=== PATIENT | female | born 1950 | race Caucasian/White ===

== ENCOUNTER 2016-03-24 09:33 | Inpatient (IN) | payer OTHER ==
[~2016-03-24] VITALS: Ht 160 cm; Wt 61.2 kg
[2016-03-24 09:34] VITALS: BP 143/73; PULSE 101; RESP 24; TEMP 97.5; O2SAT 94
[2016-03-24] MEDS ORDERED: SODIUM CHLOR 0.9% 1000 ML INJ 1,000 ML IV SCH (11:29)
--- NOTE | 2016-03-24 11:29 | PD ---
HPI Chief Complaint: Abdominal Pain Time Seen by Provider: 11:25 Travel History International Travel<30 days: No Contact w/Intl Traveler<30days: No Traveled to known affect area: No History of Present Illness HPI 65-year-old female coming in with progressively worsening abdominal pain, nausea, vomiting, and lack of bowel movement. Patient states she was recently seen in [facility], and advised to go to [place]. She left AMA and came here today. She is unsure of what her diagnosis was at that time. Patient states a 3 to four-week history of increasing abdominal pain , which she is blaming on a recent pain patch she was placed on for her chronic back pain. Patient is a long-term smoker with history of COPD. Patient currently only takes Lortab and Xanax for her ADHD. Patient also takes inhalers for her COPD. She continues to smoke one to 2 packs of cigarettes per day. She denies liver, or pancreatic problems. She states she has not drunk alcohol in 20 years. Patient states she cannot keep anything down for the past week. Patient states decreased urine output. Patient denies fever, chills, or burning with urination. Patient is noted bilateral lower extremity swelling over the past week as well. Patient's chief complaint is of severe abdominal pain mainly in the right upper quadrant and epigastric region. Patient is allergic to Darvocet and nonsteroidal medications. [facility] Social History Alcohol Use: No Tobacco Use: Yes Substance Use: No Allergies-Medications (Allergen,Severity, Reaction): Coded Allergies: Darvocet-N 100 (Verified Allergy, Severe, Nausea/Vomiting, 03/24/16) Nonsteroidal Anti-Inflammatory Agts (Verified Adverse Reaction, Severe, peptic ulcer, 03/24/16) Review of Systems Except as stated in HPI: all other systems reviewed are Neg General / Constitutional: No: Fever, Chills Eyes: No: Visual changes HENT: No: Headaches Cardiovascular: No: Chest Pain or Discomfort Respiratory: No: Shortness of Breath Gastrointestinal: Positive: Nausea, Vomiting, Abdominal Pain, Constipation, No : Diarrhea, Hematemesis, Hematochezia, Changes in Bowel Habits, Indigestion, Dysphagia, Loss of Appetite Genitourinary: Positive: Decreased Urinary Output, No: Dysuria Musculoskeletal: No: Pain Skin: No Rash Neurologic: No: Weakness Psychiatric: No: Depression Endocrine: No: Polydipsia Hematologic/Lymphatic: No: Easy Bruising Physical Exam Exam Limitations: Poor Historian Narrative GENERAL: Somewhat confused and disheveled patient with obvious mild jaundice. SKIN: Warm and dry. Mild jaundice noted. Poor turgor. Mild tenting present. HEAD: Atraumatic. Normocephalic. EYES: Pupils equal and round. Mild to moderate scleral icterus. No injection or drainage. ENT: No nasal bleeding or discharge. Mucous membranes pink and somewhat dry. Pharynx is clear. Airway is patent. NECK: Trachea midline. No JVD. Supple nontender. CARDIOVASCULAR: Regular rate and rhythm. RESPIRATORY: No accessory muscle use. Clear to auscultation. Breath sounds equal bilaterally. GASTROINTESTINAL: Abdomen soft, moderate right upper quadrant and epigastric tenderness with guarding, mildly distended. There appears to be a hard tender enlarged liver. No CVA tenderness. MUSCULOSKELETAL: Extremities without clubbing, cyanosis, or bilateral 2+ pitting edema in both lower extremities. No obvious deformities. NEUROLOGICAL: Awake and alert. No obvious cranial nerve deficits. Motor grossly within normal limits. Five out of 5 muscle strength in the arms and legs. Normal speech. PSYCHIATRIC: Appropriate mood and affect; insight and judgment normal. Data Data Last Documented VS Vital Signs Date Time Temp Pulse Resp B/P Pulse Ox O2 Delivery O2 Flow Rate FiO2 03/24/16 11:34 95 Room Air 03/24/16 11:31 18 03/24/16 09:34 97.5 101 143/73 Orders Complete Blood Count With Diff (03/24/16 09:36) Comprehensive Metabolic Panel (03/24/16 09:36) Urinalysis - C+S If Indicated (03/24/16 09:36) Lipase (03/24/16 09:36) Lactic Acid (03/24/16 11:29) Prothrombin Time / Inr (Pt) (03/24/16 11:29) Act Partial Throm Time (Ptt) (03/24/16 11:29) Ct Abd/Pel W Iv Contrast(Rout) (03/24/16 11:29) Iv Access Insert/Monitor (03/24/16 11:29) Ecg Monitoring (03/24/16 11:29) Oximetry (03/24/16 11:29) NPO (03/24/16 11:29) Morphine Inj (Morphine Inj) (03/24/16 11:30) Ondansetron Inj (Zofran Inj) (03/24/16 11:30) Pantoprazole Inj (Protonix Inj) (03/24/16 11:30) Sodium Chlor 0.9% 1000 Ml Inj (Ns 1000 M (03/24/16 11:29) Sodium Chloride 0.9% Flush (Ns Flush) (03/24/16 11:30) Electrocardiogram (03/24/16 11:29) Ammonia (03/24/16 11:29) Alcohol (Ethanol) (03/24/16 11:32) Oral Contrast - Adult (03/24/16 11:33) Diatrizoate Liq ( Gastroview Liq) (03/24/16 12:06) Hepatitis Profile (03/24/16 12:56) Ct Thorax/ Chest Wo Iv Contras (03/24/16 14:06) Iohexol 350 Inj (Omnipaque 350 Inj) (03/24/16 14:19) Admit Order (Ed Use Only) (03/24/16 14:52) Labs Laboratory Tests Test 03/24/16 03/24/16 11:45 14:00 White Blood Count 17.5 TH/MM3 Red Blood Count 5.07 MIL/MM3 Hemoglobin 15.7 GM/DL Hematocrit 45.3 % Mean Corpuscular Volume 89.4 FL Mean Corpuscular Hemoglobin 31.0 PG Mean Corpuscular Hemoglobin 34.7 % Concent Red Cell Distribution Width 13.9 % Platelet Count 118 TH/MM3 Mean Platelet Volume 8.4 FL Neutrophils (%) (Auto) 86.9 % Lymphocytes (%) (Auto) 7.2 % Monocytes (%) (Auto) 5.2 % Eosinophils (%) (Auto) 0.3 % Basophils (%) (Auto) 0.4 % Neutrophils # (Auto) 15.2 TH/MM3 Lymphocytes # (Auto) 1.3 TH/MM3 Monocytes # (Auto) 0.9 TH/MM3 Eosinophils # (Auto) 0.1 TH/MM3 Basophils # (Auto) 0.1 TH/MM3 CBC Comment AUTO DIFF Differential Total Cells 100 Counted Neutrophils % (Manual) 87 % Band Neutrophils % 1 % Lymphocytes % 7 % Monocytes % 4 % Neutrophils # (Manual) 15.6 TH/MM3 Myelocytes 1 % Differential Comment FINAL DIFF MANUAL Platelet Estimate LOW Platelet Morphology Comment NORMAL Red Cell Morphology Comment NORMAL Prothrombin Time 15.8 SEC Prothromb Time International 1.4 RATIO Ratio Activated Partial 26.5 SEC Thromboplast Time Sodium Level 128 MEQ/L Potassium Level 4.0 MEQ/L Chloride Level 91 MEQ/L Carbon Dioxide Level 27.4 MEQ/L Anion Gap 10 MEQ/L Blood Urea Nitrogen 21 MG/DL Creatinine 0.81 MG/DL Estimat Glomerular Filtration 71 ML/MIN Rate Random Glucose 94 MG/DL Lactic Acid Level 1.4 mmol/L Calcium Level 9.1 MG/DL Total Bilirubin 8.2 MG/DL Aspartate Amino Transf 387 U/L (AST/SGOT) Alanine Aminotransferase 381 U/L (ALT/SGPT) Alkaline Phosphatase 690 U/L Ammonia LESS THAN 10 MCMOL/L Total Protein 6.3 GM/DL Albumin 3.4 GM/DL Lipase 295 U/L Ethyl Alcohol Level LESS THAN 3 MG/DL Urine Color DARK-ORANGE Urine Turbidity HAZY Urine pH 6.5 Urine Specific [place] 1.027 Urine Protein 30 mg/dL Urine Glucose (UA) NEG mg/dL Urine Ketones 10 mg/dL Urine Occult Blood NEG Urine Nitrite NEG Urine Bilirubin MOD Urine Urobilinogen 2.0 MG/DL Urine Leukocyte Esterase TRACE Urine RBC 2 /hpf Urine WBC 7 /hpf Urine Squamous Epithelial 6 /hpf Cells Urine Bacteria OCC /hpf Urine Hyaline Casts 1 /lpf Urine Mucus FEW /lpf Microscopic Urinalysis Comment CULT NOT INDICATED MDM Medical Decision Making Medical Screen Exam Complete: Yes Emergency Medical Condition: Yes Differential Diagnosis Abdominal pain. Hepatitis. Pancreatitis. Gallbladder disease. Narrative Course Patient appears medically stable at time of exam although in pain. Labs ordered including CBC, CMP, lipase, urinalysis, urine drug screen, PT PTT and INR, and EtOH level. CT of the abdomen with contrast was ordered. CT of the chest with contrast is ordered, after findings were noted on abdominal CT. CBC shows leukocytosis of 17.5 with mild to moderate right shift. CMP shows sodium 128, chloride 91, BUN 21, creatinine of 0.81. Lactic acid is 1.4. Total bilirubin was 8.2. AST is 387, ALT 381, alkaline phosphatase is 690. Ammonia is less than 10. Total protein 6.3. Urinalysis shows the urine to be dark orange, hazy, with a 30, ketones 10, moderate bilirubin, trace of leukocyte esterase. Culture was not indicated. PT PTT and INR are within normal limits. Hepatitis panel is added. Abdominal CT shows no evidence of metastatic disease, ascites and anasarca, and hepatomegaly. Per radiologist. Chest CT shows large right perihilar mass with mediastinal osmani involvement. Calcify July Rollman the right lower lobe, no evidence of obstructive bone lesions per radiologist. Patient will be admitted to the residence. Dr. Hand spoke with the residents for admission. Diagnosis Primary Impression: Mass in chest Additional Impressions: Elevated LFTs Abdominal pain Qualified Code: R10.10 - Pain of upper abdomen Admitting Information Admitting Physician Requests: Admit Condition: Stable Cristóbal Prakash Mar 24, 2016 11:29
[2016-03-24] MEDS ORDERED: PANTOPRAZOLE SODIUM 40 MG VIAL IVP ONE (11:30)
[2016-03-24] MEDS ORDERED: ONDANSETRON HCL 4 MG/2 ML VIAL IVP ONE (11:30)
[2016-03-24] MEDS ORDERED: SODIUM CHLORIDE 0.9% FLUSH 5 ML FLUSH IVF PRN (11:30)
[2016-03-24] MEDS ORDERED: MORPHINE SULFATE 4 MG/ML INJ IV PUSH ONE (11:30)
[2016-03-24 11:34] VITALS: O2SAT 95
[2016-03-24 12:06] LABS: AUTOMATED NEUTROPHIL # 15.2 TH/MM3 (1.8-7.7); BASOPHIL # 0.1 TH/MM3 (0-0.2); BASOPHIL % 0.4 % (0.0-2.0); EOSINOPHIL # 0.1 TH/MM3 (0-0.4); EOSINOPHIL % 0.3 % (0.0-4.0); HEMATOCRIT 45.3 % (35.0-46.0); LYMPH % 7.2 % (9.0-44.0); LYMPHOCYTE # 1.3 TH/MM3 (1.0-4.8); MEAN CELL VOLUME 89.4 FL (80.0-100.0); MEAN CORPUSCULAR HGB CONC 34.7 % (32.0-36.0); MONO % 5.2 % (0.0-8.0); NEUT % 86.9 % (16.0-70.0); PLATELET COUNT 118 TH/MM3 (150-450); RED BLOOD COUNT 5.07 MIL/MM3 (4.00-5.30); RED CELL DISTRIBUTION WIDTH 13.9 % (11.6-17.2); WHITE BLOOD COUNT 17.5 TH/MM3 (4.0-11.0)
[2016-03-24] MEDS ORDERED: DIATRIZOATE MEGLUM/DIATRIZOATE SOD 9 ML CUP ONE (12:06)
[2016-03-24 12:10] LABS: HEMO FLAGS AUTO DIFF
[2016-03-24 12:11] LABS: APTT (PATIENT) 26.5 SEC (24.3-30.1); INTERNATIONAL NORMALIZED RATIO 1.4 RATIO; PROTHROMBIN TIME - PATIENT 15.8 SEC (9.8-11.6)
[2016-03-24 12:32] LABS: ALKALINE PHOSPHATASE 690 U/L (45-117); ALT (GPT) 381 U/L (10-53); ANION GAP 10 MEQ/L (5-15); AST (GOT) 387 U/L (15-37); BICARBONATE 27.4 MEQ/L (21.0-32.0); BLOOD UREA NITROGEN 21 MG/DL (7-18); CHLORIDE 91 MEQ/L (98-107); GLOMERULAR FILTRATION RATE 71 ML/MIN (>89); SODIUM (NA) 128 MEQ/L (136-145); TOTAL BILIRUBIN ADULT 8.2 MG/DL (0.2-1.0)
[2016-03-24 12:45] LABS: BANDS 1 % (0-6); MYELOCYTES 1 % (0-0); NEUTROPHIL # MANUAL DIFF 15.6 TH/MM3 (1.8-7.7); POLYS (SEG NEUTROPHILS) 87 % (16-70); WBC DIFF SAMPLE 100
[2016-03-24 12:46] LABS: PLATELET ESTIMATE SMEAR LOW (NORMAL); PLATELET MORPHOLOGY NORMAL (NORMAL); SCAN/DIFF FINAL DIFF MANUAL
[2016-03-24] MEDS ORDERED: IOHEXOL 350 MG/ML 10 ML VIAL (for RAD DIAG) IV ONE (14:19)
--- NOTE | 2016-03-24 14:29 | RADRPT ---
EXAM DATE/TIME: 03/24/2016 14:01 [facility] COMPARISON: No previous studies available for comparison. INDICATIONS : Abdominal pain for 8 days. IV CONTRAST: 72 cc Omnipaque 350 (iohexol) IV ORAL CONTRAST: Prescribed oral contrast ingested. RADIATION DOSE: 6.99 CTDIvol (mGy) MEDICAL HISTORY : Chronic obstructive pulmonary disease. SURGICAL HISTORY : Hysterectomy. section. ENCOUNTER: Initial ACUITY: 1 week PAIN SCALE: 4/10 LOCATION: Bilateral abdomen TECHNIQUE: Volumetric scanning of the abdomen and pelvis was performed. Using automated exposure control and ad justment of the mA and/or kV according to patient size, radiation dose was kept as low as reasonably achievable to obtain optimal diagnostic quality images. FINDINGS: There is a large mass in the right hilum with direct extension to the mediastinum. CT scan of the tho rax is to be performed. The liver is enlarged but no focal defects are identified. There is a small a mount of ascites over the dome of the liver. The spleen is normal in size and free of focal defects. The pancreas demonstrates no evidence of mass and there is no dilatation of the pancreatic duct. Ther e is fluid surrounding the gallbladder which did not specific finding in the face of ascites. The adr enal glands and kidneys appear normal bilaterally. No hydronephrosis or mass lesions are identified. No abnormally enlarged lymph nodes are identified. Free fluid is present within the pelvis. No adnexal masses are identified. The bladder appears normal . No wall thickening or intraluminal masses are identified. There is diffuse edema in the subcutaneou s tissues consistent with anasarca. CONCLUSION: 1. No evidence of metastatic disease. 2. Ascites and anasarca. 3. Hepatomegaly Jameson Maher MD on March 24, 2016 at 14:24 Board Certified Radiologist. This report was verified electronically.
[2016-03-24 14:34] LABS: BACTERIA, URINE OCC /hpf; BLOOD, URINE NEG (NEG); COMMENT (UR) CULT NOT INDICATED; CULTURE IF INDICATED CULT NOT INDICATED; GLUCOSE,URINE NEG (NEG); HYALINE CAST, URINE 1 /lpf (RARE); KETONE, URINE 10 mg/dL (NEG); MUCUS URINE FEW /lpf (OCC); NITRITE,URINE NEG (NEG); PH, URINE 6.5 (5.0-8.5); SQUAMOUS EPITHELIAL CELL URINE 6 /hpf (0-5); URINE COLOR DARK-ORANGE (YELLW/STRAW)
--- NOTE | 2016-03-24 14:56 | RADRPT ---
EXAM DATE/TIME: 03/24/2016 14:01 [facility] COMPARISON: No previous studies available for comparison. INDICATIONS : Possible mass. RADIATION DOSE: 5.08 CTDIvol (mGy) MEDICAL HISTORY : Chronic obstructive pulmonary disease. SURGICAL HISTORY : section. Hysterectomy. ENCOUNTER: Initial ACUITY: 1 week PAIN SCALE: 0/10 LOCATION: chest TECHNIQUE: Volumetric scanning of the chest was performed. Using automated exposure control and adjustment of t he mA and/or kV according to patient size, radiation dose was kept as low as reasonably achievable to obtain optimal diagnostic quality images. FINDINGS: LUNGS: A large solid right-sided perihilar masses noted. The mass begins just below the level of the main pu lmonary artery and extends caudally and laterally along the right interlobar fissure. Mass measures 4 .6 x 6.3 cm in greatest diameter. There is significant encasement and narrowing of the bronchus inter medius. Calcified granuloma is noted in the right lower lobe. The left lung is clear. PLEURAE: There is no pleural thickening or pleural effusion. MEDIASTINUM: Large mediastinal lymph nodes are noted. There is a 2.6 paratracheal lymph node, a 2.7 precarinal lym ph node and a 3.9 subcarinal lymph node. Right-sided bronchopulmonary lymph nodes are also apparent. AXILLAE: Within normal limits. No lymphadenopathy. MUSCULOSKELETAL: Within normal limits for patient age. MISCELLANEOUS: The visualized upper abdominal organs demonstrate no acute abnormality. 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 Calcified granuloma right lower lobe. No evidence of destructive bone lesions. Emanuel Gannon MD on March 24, 2016 at 14:47 Board Certified Radiologist. This report was verified electronically.
--- NOTE | 2016-03-24 15:00 | PD ---
Data Data Last Documented VS Vital Signs Date Time Temp Pulse Resp B/P Pulse Ox O2 Delivery O2 Flow Rate FiO2 03/24/16 11:34 95 Room Air 03/24/16 11:31 18 03/24/16 09:34 97.5 101 143/73 Orders Complete Blood Count With Diff (03/24/16 09:36) Comprehensive Metabolic Panel (03/24/16 09:36) Urinalysis - C+S If Indicated (03/24/16 09:36) Lipase (03/24/16 09:36) Lactic Acid (03/24/16 11:29) Prothrombin Time / Inr (Pt) (03/24/16 11:29) Act Partial Throm Time (Ptt) (03/24/16 11:29) Ct Abd/Pel W Iv Contrast(Rout) (03/24/16 11:29) Iv Access Insert/Monitor (03/24/16 11:29) Ecg Monitoring (03/24/16 11:29) Oximetry (03/24/16 11:29) NPO (03/24/16 11:29) Morphine Inj (Morphine Inj) (03/24/16 11:30) Ondansetron Inj (Zofran Inj) (03/24/16 11:30) Pantoprazole Inj (Protonix Inj) (03/24/16 11:30) Sodium Chlor 0.9% 1000 Ml Inj (Ns 1000 M (03/24/16 11:29) Sodium Chloride 0.9% Flush (Ns Flush) (03/24/16 11:30) Electrocardiogram (03/24/16 11:29) Ammonia (03/24/16 11:29) Alcohol (Ethanol) (03/24/16 11:32) Oral Contrast - Adult (03/24/16 11:33) Diatrizoate Liq ( Gastroview Liq) (03/24/16 12:06) Hepatitis Profile (03/24/16 12:56) Ct Thorax/ Chest Wo Iv Contras (03/24/16 14:06) Iohexol 350 Inj (Omnipaque 350 Inj) (03/24/16 14:19) Admit Order (Ed Use Only) (03/24/16 14:52) Labs Laboratory Tests Test 03/24/16 03/24/16 11:45 14:00 White Blood Count 17.5 TH/MM3 Red Blood Count 5.07 MIL/MM3 Hemoglobin 15.7 GM/DL Hematocrit 45.3 % Mean Corpuscular Volume 89.4 FL Mean Corpuscular Hemoglobin 31.0 PG Mean Corpuscular Hemoglobin 34.7 % Concent Red Cell Distribution Width 13.9 % Platelet Count 118 TH/MM3 Mean Platelet Volume 8.4 FL Neutrophils (%) (Auto) 86.9 % Lymphocytes (%) (Auto) 7.2 % Monocytes (%) (Auto) 5.2 % Eosinophils (%) (Auto) 0.3 % Basophils (%) (Auto) 0.4 % Neutrophils # (Auto) 15.2 TH/MM3 Lymphocytes # (Auto) 1.3 TH/MM3 Monocytes # (Auto) 0.9 TH/MM3 Eosinophils # (Auto) 0.1 TH/MM3 Basophils # (Auto) 0.1 TH/MM3 CBC Comment AUTO DIFF Differential Total Cells 100 Counted Neutrophils % (Manual) 87 % Band Neutrophils % 1 % Lymphocytes % 7 % Monocytes % 4 % Neutrophils # (Manual) 15.6 TH/MM3 Myelocytes 1 % Differential Comment FINAL DIFF MANUAL Platelet Estimate LOW Platelet Morphology Comment NORMAL Red Cell Morphology Comment NORMAL Prothrombin Time 15.8 SEC Prothromb Time International 1.4 RATIO Ratio Activated Partial 26.5 SEC Thromboplast Time Sodium Level 128 MEQ/L Potassium Level 4.0 MEQ/L Chloride Level 91 MEQ/L Carbon Dioxide Level 27.4 MEQ/L Anion Gap 10 MEQ/L Blood Urea Nitrogen 21 MG/DL Creatinine 0.81 MG/DL Estimat Glomerular Filtration 71 ML/MIN Rate Random Glucose 94 MG/DL Lactic Acid Level 1.4 mmol/L Calcium Level 9.1 MG/DL Total Bilirubin 8.2 MG/DL Aspartate Amino Transf 387 U/L (AST/SGOT) Alanine Aminotransferase 381 U/L (ALT/SGPT) Alkaline Phosphatase 690 U/L Ammonia LESS THAN 10 MCMOL/L Total Protein 6.3 GM/DL Albumin 3.4 GM/DL Lipase 295 U/L Ethyl Alcohol Level LESS THAN 3 MG/DL Urine Color DARK-ORANGE Urine Turbidity HAZY Urine pH 6.5 Urine Specific [place] 1.027 Urine Protein 30 mg/dL Urine Glucose (UA) NEG mg/dL Urine Ketones 10 mg/dL Urine Occult Blood NEG Urine Nitrite NEG Urine Bilirubin MOD Urine Urobilinogen 2.0 MG/DL Urine Leukocyte Esterase TRACE Urine RBC 2 /hpf Urine WBC 7 /hpf Urine Squamous Epithelial 6 /hpf Cells Urine Bacteria OCC /hpf Urine Hyaline Casts 1 /lpf Urine Mucus FEW /lpf Microscopic Urinalysis Comment CULT NOT INDICATED MDM Supervised Visit with CLAUDIA: Yes Narrative Course I, Dr. Everett, have reviewed the advance practice practioner's documentation and am in agreement, met with the patient face to face, made the diagnosis, and the medical decision making was done by me. *My assessment and Findings: 65-year-old female here with approximately 3-4 week history of increasing right upper quadrant abdominal pain, nausea, vomiting and jaundice. Seen at outside hospital and diagnosed with some sort of liver blockage and was instructed to be admitted but patient declined, family lives locally and she wanted to be here. She presents the ER today, none of her symptoms are acutely worsened over the course the last 1-2 days. On exam she is jaundice and has significant hepatomegaly, with right upper quadrant abdominal pain and bilateral peripheral lower, he edema. Differential includes renal failure, cirrhosis, alcohol abuse, hepatitis, portal vein thrombosis, metastasis to the liver. Laboratory workup notable for leukocytosis , hyponatremia and abnormal LFTs. A hepatitis panel was added on. CT of the abdomen and pelvis was negative but CT of the chest shows right perihilar mass with mediastinal osmani involvement. Radiology notes no metastatic infiltration of the liver. Patient will be admitted for further management. Kristi Everett MD Mar 24, 2016 15:00 day. She denies liver, or pancreatic problems. She states she has not drunk alcohol in 20 years. Patient states she cannot keep anything down for the past week. Patient states decreased urine output. Patient denies fever, chills, or burning with urination. Patient is noted bilateral lower extremity swelling over the past week as well. Patient's chief complaint is of severe abdominal pain mainly in the right upper quadrant and epigastric region. Patient is allergic to Darvocet and nonsteroidal medications. Kristi Everett MD Mar 24, 2016 15:00
[2016-03-24] MEDS ORDERED: HYDR-3366 PO (16:07)
[2016-03-24] MEDS ORDERED: ALPR.25 PO (16:08)
[2016-03-24] MEDS ORDERED: ALBU2TAB4 PO (16:08)
[2016-03-24] MEDS ORDERED: SODI3NEB NEB (16:09)
--- NOTE | 2016-03-24 16:18 | HHI.HP ---
[facility] Service Family Medicine Primary Care Physician Luis E Gustafson MD Admission Diagnosis RUQ abd pain, elevated LFTs Diagnoses: International Travel<30 Days: No Contact w/Intl Traveler<30days: No Known Affected Area: No History of Present Illness 65 year old female presents to the ED with worsening RUQ abdominal pain for the past 3-4 weeks and nausea. She states her symptoms all started shortly after beginning to use Butrans patches. She reports poor PO intake over the past 3-4 weeks due to her nausea and dry heaves. She also reports constipation stating her last BM was about 2 weeks ago. Denies fevers or chills, or any episodes of diarrhea over the past month. She states she continues to dry heave but has not vomited recently. States the last time she vomited was about a month ago. Denies any blood or bile in that vomitus. Denies ever having an EGD or colonoscopy before. She states her lower extremity edema started a few days after [place]. She also endorses periumbilical abdominal pain. No radiation of this pain or her RUQ pain. Denies chest pain. Denies shortness of breath. She states her BMs were regular prior to 4 weeks ago. She denies any significant weight loss over the past month. (Ephraim Red MD R1) Review of Systems Constitutional: COMPLAINS OF: Change in appetite, DENIES: Fever, Weight loss, Chills, Dizziness Eyes: DENIES: Blurred vision Ears, nose, mouth, throat: COMPLAINS OF: Hoarseness Respiratory: COMPLAINS OF: Cough, DENIES: Hemoptysis, Sputum production, Shortness of breath Gastrointestinal: COMPLAINS OF: Abdominal pain, Constipation, Nausea, Vomiting , DENIES: Diarrhea Genitourinary: DENIES: Hematuria, Dysuria (Ephraim Red MD R1) Past Family Social History Past Medical History Chronic pain, on disability since 1996 COPD Osteopenia Adjustment disorder Anxiety Depression Past Surgical History Hysterectomy Reported Medications Reported Meds & Active Scripts Active Reported Albuterol (Albuterol Sulfate) 2 Mg Tab Unknown Dose PO TID Xanax (Alprazolam) 0.25 Mg Tab Unknown Dose PO Q4H PRN [place] (Hydrocodone-Acetaminophen) 10-325 Mg Tab 1 Tab PO Q6H PRN (Ephraim Red MD R1) Allergies: Coded Allergies: Darvocet-N 100 (Verified Allergy, Severe, Nausea/Vomiting, 03/24/16) Nonsteroidal Anti-Inflammatory Agts (Verified Adverse Reaction, Severe, peptic ulcer, 03/24/16) Family History Father: at age 60 brain aneurysm Mother: multiple cardiac stents, still alive, 79 years old 44 year old son; patient is not aware of his health as she has not seen him in 7 years Social History Tobacco: 1 PPD x 34 years, currently 1/2 PPD Etoh: last drink about 20 years ago, she reported being a heavy drinker consuming beer and liquor since the age of 18 Illicit drug: h/o cocaine use, last use 16 years ago; denies use of any other illicit drugs Lives in [place] alone in housing for senior citizens (Ephraim Red MD R1) Physical Exam Vital Signs Vital Signs Date Time Temp Pulse Resp B/P Pulse Ox O2 Delivery O2 Flow Rate FiO2 03/24/16 11:34 95 Room Air 03/24/16 11:31 18 03/24/16 09:34 97.5 101 24 143/73 94 Physical Exam GENERAL: Frequent dry heaves, appearing to be distress secondary to her dry heaves and abdominal pain SKIN: Jaundiced. No rashes. HEAD: Atraumatic. Normocephalic. EYES: Pupils equal round and reactive. Extraocular motions intact. Scleral icterus evident. No injection or drainage. ENT: No nasal drainage. Throat without erythema, tonsillar hypertrophy or exudate. Uvula midline. Airway patent. NECK: Trachea midline. No JVD. Supple, nontender, no meningeal signs. CARDIOVASCULAR: Regular rate and rhythm without murmurs, gallops, or rubs. RESPIRATORY: Clear to auscultation. Breath sounds equal bilaterally. No wheezes , rales, or rhonchi. GASTROINTESTINAL: Abdomen soft, significant tenderness to palpation of RUQ and ~ 1cm superior to umbilicus, distended. Significant hepatomegaly. MUSCULOSKELETAL: 2+ edema up to knees bilaterally. Some edema of lower back. No calf tenderness. NEUROLOGICAL: Awake and alert. Cranial nerves II through XII intact. Motor and sensory grossly within normal limits. Normal speech. Laboratory Laboratory Tests Test 03/24/16 03/24/16 03/24/16 11:45 13:25 14:00 White Blood Count 17.5 Red Blood Count 5.07 Hemoglobin 15.7 Hematocrit 45.3 Mean Corpuscular Volume 89.4 Mean Corpuscular Hemoglobin 31.0 Mean Corpuscular Hemoglobin 34.7 Concent Red Cell Distribution Width 13.9 Platelet Count 118 Mean Platelet Volume 8.4 Neutrophils (%) (Auto) 86.9 Lymphocytes (%) (Auto) 7.2 Monocytes (%) (Auto) 5.2 Eosinophils (%) (Auto) 0.3 Basophils (%) (Auto) 0.4 Neutrophils # (Auto) 15.2 Lymphocytes # (Auto) 1.3 Monocytes # (Auto) 0.9 Eosinophils # (Auto) 0.1 Basophils # (Auto) 0.1 CBC Comment AUTO DIFF Differential Total Cells 100 Counted Neutrophils % (Manual) 87 Band Neutrophils % 1 Lymphocytes % 7 Monocytes % 4 Neutrophils # (Manual) 15.6 Myelocytes 1 Differential Comment FINAL DIFF MANUAL Platelet Estimate LOW Platelet Morphology Comment NORMAL Red Cell Morphology Comment NORMAL Prothrombin Time 15.8 Prothromb Time International 1.4 Ratio Activated Partial 26.5 Thromboplast Time Sodium Level 128 Potassium Level 4.0 Chloride Level 91 Carbon Dioxide Level 27.4 Anion Gap 10 Blood Urea Nitrogen 21 Creatinine 0.81 Estimat Glomerular Filtration 71 Rate Random Glucose 94 Lactic Acid Level 1.4 Calcium Level 9.1 Total Bilirubin 8.2 Aspartate Amino Transf 387 (AST/SGOT) Alanine Aminotransferase 381 (ALT/SGPT) Alkaline Phosphatase 690 Ammonia LESS THAN 10 Total Protein 6.3 Albumin 3.4 Lipase 295 Ethyl Alcohol Level LESS THAN 3 Hepatitis A IgM Antibody NEGATIVE Hepatitis B Surface Antigen NEGATIVE Hepatitis B Core IgM Antibody NEGATIVE Hepatitis C Antibody NEGATIVE Urine Color DARK-ORANGE Urine Turbidity HAZY Urine pH 6.5 Urine Specific [place] 1.027 Urine Protein 30 Urine Glucose (UA) NEG Urine Ketones 10 Urine Occult Blood NEG Urine Nitrite NEG Urine Bilirubin MOD Urine Urobilinogen 2.0 Urine Leukocyte Esterase TRACE Urine RBC 2 Urine WBC 7 Urine Squamous Epithelial 6 Cells Urine Bacteria OCC Urine Hyaline Casts 1 Urine Mucus FEW Microscopic Urinalysis Comment CULT NOT INDICATED (Ephraim Red MD R1) Result Diagram: 03/24/16 1145 03/24/16 1145 Imaging Last [address] 03/24/16 1406 Signed Impressions: Service Date/Time: Thursday, March 24, 2016 14:01 - CONCLUSION: Large right perihilar mass with mediastinal osmani involvement. Calcified granuloma right lower lobe. No evidence of destructive bone lesions. Emanuel Gannon MD Abdomen/Pelvis CT 03/24/16 1129 Signed Impressions: Service Date/Time: Thursday, March 24, 2016 14:01 - CONCLUSION: 1. No evidence of metastatic disease. 2. Ascites and anasarca. 3. Hepatomegaly Jameson Maher MD (Ephraim Red MD R1) Assessment and Plan Assessment and Plan 65 year old female presents to the ED with RUQ abdominal pain, nausea, and poor PO intake for the past 3-4 weeks. She will be admitted and managed for the following: Code Status Full code Discussed Condition With sdw Dr. Chuck Jenkins (Ephraim Red MD R1) Problem List: (1) Hilar mass Status: Acute Plan: Chest CT showing large right perihilar mass with mediastinal osmani involvement Will need to consult IR to determine if a biopsy can be obtained percutaneously or if bronchoscopy would be recommended (2) Abdominal pain Status: Acute Plan: Unclear etiology at this time Her hepatomegaly could be due to right heart failure in addition to other causes listed below Will obtain echocardiogram to assess cardiac function (3) Ascites Status: Acute Plan: Ascites evident on exam; abdomen/pelvis CT also showing ascites with anasarca May be able to obtain diagnostic paracentesis if there is enough volume to be tapped Lasix 40 mg IV x1 (4) Transaminitis Status: Acute Plan: Etiology could be cirrhosis, viral hepatitis, alcoholic fatty liver disease Patient does have a h/o heavy etoh use for over 20 years, reports not drinking for the past 20 years Hepatitis panel is negative (5) Hyponatremia Status: Acute Plan: Na 128 on admission 1.5 L fluid restriction No IVF given her ascites and anasarca Trend BMP (Ephraim Red MD R1) Physician Certification 2 Midnight Certification Type: Admission for Inpatient Services Order for Inpatient Services The services are ordered in accordance with Medicare regulations or non- Medicare payer requirements, as applicable. In the case of services not specified as inpatient-only, they are appropriately provided as inpatient services in accordance with the 2-midnight benchmark. Estimated LOS (days): 2 days is the estimated time the patient will need to remain in the hospital, assuming treatment plan goals are met and no additional complications. Post-Hospital Plan: SNF (Ephraim Red MD R1) 2 Midnight Certification Type: Admission for Inpatient Services Post-Hospital Plan: Not yet determined (Martell Jenkins MD) Problem Qualifiers (1) Abdominal pain: Qualified Code: R10.10 - Pain of upper abdomen Ephraim Red MD R1 Mar 24, 2016 16:18 Martell Jenkins MD Mar 25, 2016 12:30
[2016-03-24 16:22] VITALS: BP 167/72; PULSE 90; RESP 18; O2SAT 95
[2016-03-24] MEDS ORDERED: NALOXONE HCL 0.4 MG/ML AMP IV PRN ×3 (17:00→17:15)
[2016-03-24] MEDS ORDERED: SODIUM CHLORIDE 0.9% FLUSH 5 ML FLUSH FLUSH PRN (17:00)
[2016-03-24] MEDS ORDERED: RESP: ALBUTEROL 2.5 MG/3 ML NEB (PRN) INH (17:15)
[2016-03-24] MEDS ORDERED: ALPRAZolam 0.25 MG TAB PO PRN (17:15)
[2016-03-24 17:45] VITALS: BP 182/92; PULSE 100; RESP 28; TEMP 96.6; O2SAT 95
[2016-03-24] MEDS ORDERED: FUROSEMIDE 40 MG/4 ML VIAL IV PUSH ONE (18:00)
[2016-03-24 20:00] VITALS: BP 163/77; PULSE 103; RESP 20; TEMP 97.4; O2SAT 94
[2016-03-24] MEDS: SODIUM CHLORIDE 0.9% FLUSH 5 ML FLUSH FLUSH SCH (20:36)
[2016-03-24] MEDS: DOCUSATE SODIUM 50 MG/SENNA 8.6 MG TAB PO SCH (20:36)
[2016-03-24] MEDS ORDERED: LISINOPRIL 5 MG TAB PO SCH (22:15)
[2016-03-25] VITALS (7 sets, daily range): BP systolic 117–201; BP diastolic 61–96; PULSE 86–99; RESP 18–28; TEMP 96.2–98.4; O2SAT 87–95
[2016-03-25] MEDS: ONDANSETRON HCL 4 MG/2 ML VIAL IVP PRN ×3 (01:43→19:50)
[2016-03-25] MEDS: MORPHINE SULFATE 4 MG/ML INJ IV PRN ×4 (01:44→22:48)
[2016-03-25] MEDS ORDERED: ENALAPRILAT 1.25 MG/ML VIAL IV PRN (05:15)
[2016-03-25] MEDS ORDERED: MORPHINE SULFATE 4 MG/ML INJ IV PUSH ONE (05:15)
[2016-03-25] MEDS: cefTRIAXone INJ 1,000 MG in SODIUM CHLORIDE 0.9% INJ 100 ML IV SCH (06:46)
[2016-03-25] MEDS ORDERED: LISINOPRIL 5 MG TAB PO ONE (07:00)
[2016-03-25] MEDS ORDERED: HYDROmorphone HCL PF 1 MG/ML VIAL IV PUSH ONE (07:45)
[2016-03-25] MEDS ORDERED: PHYTONADIONE 5 MG TAB PO ONE (08:00)
[2016-03-25 08:20] LABS: INTERNATIONAL NORMALIZED RATIO 1.5 RATIO; PROTHROMBIN TIME - PATIENT 16.9 SEC (9.8-11.6)
[2016-03-25 08:22] LABS: BASOPHIL % 0.2 % (0.0-2.0); EOSINOPHIL % 0.2 % (0.0-4.0); HEMATOCRIT 43.6 % (35.0-46.0); LYMPH % 12.7 % (9.0-44.0); LYMPHOCYTE # 1.7 TH/MM3 (1.0-4.8); MEAN CELL VOLUME 90.5 FL (80.0-100.0); MEAN CORPUSCULAR HEMOGLOBIN 30.9 PG (27.0-34.0); MEAN CORPUSCULAR HGB CONC 34.2 % (32.0-36.0); MONO % 5.8 % (0.0-8.0); NEUT % 81.1 % (16.0-70.0); PLATELET COUNT 92 TH/MM3 (150-450); RED BLOOD COUNT 4.82 MIL/MM3 (4.00-5.30); RED CELL DISTRIBUTION WIDTH 13.9 % (11.6-17.2); WHITE BLOOD COUNT 13.5 TH/MM3 (4.0-11.0)
[2016-03-25 08:50] LABS: ALKALINE PHOSPHATASE 591 U/L (45-117); ALT (GPT) 320 U/L (10-53); ANION GAP 12 MEQ/L (5-15); AST (GOT) 340 U/L (15-37); BICARBONATE 27.8 MEQ/L (21.0-32.0); BLOOD UREA NITROGEN 19 MG/DL (7-18); CHLORIDE 88 MEQ/L (98-107); GLOMERULAR FILTRATION RATE 82 ML/MIN (>89); POTASSIUM 3.5 MEQ/L (3.5-5.1); SODIUM (NA) 128 MEQ/L (136-145); TOTAL BILIRUBIN ADULT 8.8 MG/DL (0.2-1.0)
[2016-03-25] MEDS: SODIUM CHLORIDE 0.9% FLUSH 5 ML FLUSH FLUSH SCH ×2 (09:00→19:51)
[2016-03-25 09:03] LABS: HEMO FLAGS AUTO DIFF
[2016-03-25] MEDS: HYDROmorphone HCL PF 1 MG/ML VIAL IV PUSH PRN ×3 (09:36→20:12)
[2016-03-25 10:01] LABS: PLATELET ESTIMATE SMEAR LOW (NORMAL); PLATELET MORPHOLOGY NORMAL (NORMAL)
[2016-03-25 10:02] LABS: SCAN/DIFF AUTO DIFF CONFIRMED
[2016-03-25] MEDS: RESP: ALBUTEROL 2.5 MG/IPRATROPIUM 0.5 MG NEB (SCH) NEB ×3 (10:23→19:25)
--- NOTE | 2016-03-25 11:57 | HHI.FPPN ---
Subjective Remarks Overnight patient had complaints of breakthrough pain. Patient was given 4 mg IV morphine x1 dose. This morning the patient states her nausea has improved, she was able to tolerate eating chicken soup last night. She also reports having a BM, solid consistency, denies any visible blood in the stool or melena. Overall she states she is feeling better, however still has complaints of RUQ abdominal pain and some shortness of breath. Denies any fevers or chills overnight. Objective Vitals Vital Signs Date Time Temp Pulse Resp B/P Pulse Ox O2 Delivery O2 Flow Rate FiO2 03/25/16 08:20 86 163/83 03/25/16 08:00 97.6 90 28 201/96 93 03/25/16 04:00 97.8 92 18 177/87 95 03/25/16 00:00 97.4 91 18 160/80 94 03/24/16 20:00 97.4 103 20 163/77 94 03/24/16 17:45 96.6 100 28 182/92 95 03/24/16 16:22 90 18 167/72 95 Room Air I/O 03/24/16 03/24/16 03/24/16 03/25/16 03/25/16 03/25/16 07:00 15:00 23:00 07:00 15:00 23:00 Intake Total 480 ml 0 ml 0 ml Output Total 1000 ml 600 ml 50 ml Balance -520 ml -600 ml -50 ml Intake Oral 480 ml 0 ml 0 ml Output Urine Total 1000 ml 600 ml 50 ml # Bowel Movements 1 Result Diagram: 03/25/16 0635 03/25/16 0635 Objective Remarks GENERAL: Lying in bed appearing comfortable SKIN: Jaundiced. No rashes. HEAD: Atraumatic. Normocephalic. EYES: Extraocular motions intact. Scleral icterus evident. No injection or drainage. ENT: No nasal drainage. Throat without erythema, tonsillar hypertrophy or exudate. Uvula midline. Airway patent. NECK: Trachea midline. No JVD. Supple, nontender, no meningeal signs. CARDIOVASCULAR: Regular rate and rhythm without murmurs, gallops, or rubs. RESPIRATORY: Clear to auscultation. Breath sounds equal bilaterally. No wheezes , rales, or rhonchi. GASTROINTESTINAL: Abdomen soft, tenderness to palpation of RUQ, distended. Significant hepatomegaly. MUSCULOSKELETAL: 2+ edema up to knees bilaterally. Some edema of lower back. No calf tenderness. NEUROLOGICAL: Awake and alert. Cranial nerves II through XII intact. Motor and sensory grossly within normal limits. Normal speech. A/P Assessment and Plan 65 year old female presented with RUQ abdominal pain, nausea, and poor PO intake for the past 3-4 weeks. Admitted and managed for the following: Discharge Planning Unclear timetable. Patient is to be further evaluated by Pulmonology and Gastroenterology. Problem List: (1) Hilar mass Status: Acute Plan: Chest CT showing large right perihilar mass with mediastinal osmani involvement Patient may likely need a bronchoscopy Consult pulmonology for further evaluation (2) Abdominal pain Status: Acute Plan: Unclear etiology at this time Her hepatomegaly could be due to right heart failure in addition to other causes listed below LFTs slightly improved today Will obtain echocardiogram to assess cardiac function Roxicodone 5 mg po q4h prn pain Morphine prn breakthrough pain Sherine-colace 1 tab po hs scheduled (3) Ascites Status: Acute Plan: Ascites evident on exam; abdomen/pelvis CT also showing ascites with anasarca May be able to obtain diagnostic paracentesis if there is enough volume to be tapped Continue Rocephin 1 gm IV q24h for SBP prophylaxis Afebrile, Leukocytosis resolving Lasix 40 mg IV x1 (4) Transaminitis Status: Acute Plan: Etiology could be cirrhosis, viral hepatitis, alcoholic fatty liver disease Patient does have a h/o heavy etoh use for over 20 years, reports not drinking for the past 20 years Hepatitis panel is negative Consult gastroenterology, appreciate recommendations (5) Shortness of breath Status: Acute Plan: Duonebs 1 amp scheduled TID Albuterol neb q2h prn SOB (6) Hyponatremia Status: Acute Plan: Na remains at 128, continue 1.5 L fluid restriction No IVF given her ascites and anasarca Trend PT/INR and CMP daily DVT PPX: SCDs Problem Qualifiers (1) Abdominal pain: Qualified Code: R10.10 - Pain of upper abdomen Ephraim Red MD R1 Mar 25, 2016 11:57
--- NOTE | 2016-03-25 11:59 | HHI.FPPN ---
Subjective Remarks Attending note: Patient seen with resident team. Nurse present. Pleasant 65- year-old woman from [facility] who was admitted through the emergency room with several week history of increasing right upper quadrant pain associated with generalized swelling and her observations that her most recent physical health problems seem to occur about the time she was prescribed a Butrans patch for pain in her back. This occurred around 02/27/16 and she discontinued the patches after using them twice. Has been having nausea, inability to maintain by mouth nutrition and hydration. Is a 1-2 pack per day smoker. Emergency room evaluation was notable for hepatomegaly, abnormal LFTs, right lung mass with hilar adenopathy, generalized anasarca. Please see resident history and physical for complete discussion of past medical history, family history social history and review of systems. Objective Vitals Vital Signs Date Time Temp Pulse Resp B/P Pulse Ox O2 Delivery O2 Flow Rate FiO2 03/25/16 08:20 86 163/83 03/25/16 08:00 97.6 90 28 201/96 93 03/25/16 04:00 97.8 92 18 177/87 95 03/25/16 00:00 97.4 91 18 160/80 94 03/24/16 20:00 97.4 103 20 163/77 94 03/24/16 17:45 96.6 100 28 182/92 95 03/24/16 16:22 90 18 167/72 95 Room Air I/O 03/24/16 03/24/16 03/24/16 03/25/16 03/25/16 03/25/16 07:00 15:00 23:00 07:00 15:00 23:00 Intake Total 480 ml 0 ml 0 ml Output Total 1000 ml 600 ml 50 ml Balance -520 ml -600 ml -50 ml Intake Oral 480 ml 0 ml 0 ml Output Urine Total 1000 ml 600 ml 50 ml # Bowel Movements 1 Result Diagram: 03/25/16 0635 03/25/16 0635 Objective Remarks Vital signs noted. Afebrile. Gen. appearance: Jaundiced Chronically ill patient appearing older than her stated age who is alert and oriented and conversive with the medical team. HEENT: Dry oral mucosa Lungs: Diminished breath sounds bilaterally, significantly diminished in the right mid and lower. Hyperresonant to percussion. Cardiac: S1-S2, no S3 or significant murmurs appreciated. Abdomen: Distended suggestive of ascites on appearance, mild generalized tenderness elicited on palpation, most prominent in the right upper quadrant. No rebound tenderness. Difficult to palpate organomegaly. No obvious masses. Extremities: Warm and dry, intact pedal pulses. There is trace to 1+ edema in the lower extremities bilaterally. A/P Assessment and Plan 65-year-old woman from [facility] admitted with increasing right upper quadrant pain, nausea findings include hepatomegaly, abnormal transaminases and alkaline phosphatase, jaundice, right lung mass suspicious for malignancy, generalized edema. Patient seen and examined. Case reviewed and discussed with resident team. Agree with plan of care as discussed with me and documented in the resident note. Problem List: (1) Hilar mass Status: Acute Plan: Chest CT showing large right perihilar mass with mediastinal osmani involvement Will need to consult IR to determine if a biopsy can be obtained percutaneously or if bronchoscopy would be recommended (2) Abdominal pain Status: Acute Plan: Unclear etiology at this time Her hepatomegaly could be due to right heart failure in addition to other causes listed below Will obtain echocardiogram to assess cardiac function (3) Ascites Status: Acute Plan: Ascites evident on exam; abdomen/pelvis CT also showing ascites with anasarca May be able to obtain diagnostic paracentesis if there is enough volume to be tapped Lasix 40 mg IV x1 (4) Transaminitis Status: Acute Plan: Etiology could be cirrhosis, viral hepatitis, alcoholic fatty liver disease Patient does have a h/o heavy etoh use for over 20 years, reports not drinking for the past 20 years Hepatitis panel is negative (5) Hyponatremia Status: Acute Plan: Na 128 on admission 1.5 L fluid restriction No IVF given her ascites and anasarca Trend BMP Problem Qualifiers (1) Abdominal pain: Qualified Code: R10.10 - Pain of upper abdomen Martell Jenkins MD Mar 25, 2016 11:59
[2016-03-25 14:29] LABS: BLOOD GAS BASE EXCESS 1.6 mmol/L (-2-2); BLOOD GAS CARBOXYHEMOGLOBIN 1.7 % (0-4); BLOOD GAS HCO3 26 mmol/L (22-26); BLOOD GAS METHEMOGLOBIN 0.9 % (0-2); BLOOD GAS O2 HGB SATURATION 89 % (90-100); BLOOD GAS PCO2 42 mmHg (38-42); BLOOD GAS PO2 60 mmHg (61-120); BLOOD GAS TOTAL HGB 15.3 G/DL (12.0-16.0); TEMP CORR TO 98.6
[2016-03-25 14:30] LABS: CRITICAL VALUE YES
[2016-03-25 14:31] LABS: DRAW SITE RT RADIAL; FIO2 21 %; NUMBER OF ARTERIAL PUNCTURES 1; STAT NO; ULNAR PULSE PRESENT
[2016-03-25] MEDS ORDERED: GADODIAMIDE PF 287 MG/ML 10 ML VIAL (for RAD MRI) IV ONE ×2 (18:42→19:14)
--- NOTE | 2016-03-25 19:10 | MB ---
cc: GLORIA CASTRO M.D. DATE OF CONSULTATION: 03/25/2016. REASON FOR CONSULTATION: Right hilar mass. HISTORY OF PRESENT ILLNESS: Mrs. Pond is a 65-year-old female admitted with abdominal pain and has evidence of ascites. Evaluation is being undertaken at this time. The patient's chest x-ray and subsequent CT scan of the chest is with a right perihilar mass and associated mediastinal adenopathy. I am asked to see the patient at this time for same. She has no cough, no expectoration. No fever, no chills, no hemoptysis. PAST MEDICAL HISTORY: 1. COPD. 2. Osteoporosis. 3. Anxiety. 4. Depression. 5. Previous hysterectomy. FAMILY HISTORY: Father from cerebral aneurysm. Mother has heart disease. MEDICATIONS AT HOME: 1. Allopurinol. 2. Xanax. 3. [place]. ALLERGIES: 1. DARVOCET. 2. NONSTEROIDAL ANTIINFLAMMATORY AGENT "PEPTIC ULCER DISEASE". REVIEW OF SYSTEMS: A twelve-point review of systems is as per the history of present illness and past history, otherwise negative. SOCIAL HISTORY: Smokes a pack a day 34 years now down to half-a-pack a day. Does not drink any alcohol. No TB. No industrial exposure. PHYSICAL EXAMINATION: GENERAL: On exam, the patient is alert. VITAL SIGNS: Temperature 98, pulse 90, respirations 18, blood pressure 140/70, oxygen saturation 94% on room air. HEAD, EYES, EARS, NOSE, THROAT: Unremarkable. Eyes without icterus. NECK: Without adenopathy, thyroid enlargement, central trachea. CHEST: No dullness to percussion. Clear to auscultation. CARDIAC: PMI distant. S1 and S2 audible. No murmur, no rub. ABDOMEN: Distended. Bowel sounds decreased. EXTREMITIES: No cyanosis, clubbing. 1+ edema. LABORATORY DATA: White count 17,000, hemoglobin 15, hematocrit 45, platelets 118,000. Sodium 128, potassium 4.0, BUN 20 and creatinine 0.8. IMPRESSION: 1. Right hilar mass, malignancy suspect. 2. COPD. 3. Anxiety. 4. Depression. PLAN: The patient's right perihilar mass is large and hopefully bronchoscopic examination would be diagnostic which has been discussed and explained to the patient in detail. 1. Will proceed with bronchoscopy, and depending on the findings, further evaluation will be undertaken as needed. 2. Will obtain baseline pulmonary function as well as arterial blood gas. I do thank you for asking me to partake in Mrs. Pond's care. Gloria Castro MD WWW/ERIK /1:29 PM /7:01 PM
--- NOTE | 2016-03-25 19:29 | RADRPT ---
EXAM DATE/TIME: 03/25/2016 18:22 [place] COMPARISON: CT ABDOMEN & PELVIS W CONTRAST, March 24, 2016, 14:01. INDICATIONS : Abdominal pain. CONTRAST: 10 cc Omniscan (gadodiamide) IV MEDICAL HISTORY : None. SURGICAL HISTORY : Hysterectomy. ENCOUNTER: Initial ACUITY: 1 day PAIN SCORE: 5/10 LOCATION: Right upper quadrant TECHNIQUE: Multiplanar, multisequence magnetic resonance imaging of the abdomen was performed. H igh-resolution 3D dataset was utilized to reconstruct maximum-intensity projection (MIP) images. FINDINGS: The liver is very prominently enlarged measuring over 22 cm in length. A focal hepatic lesion is not seen. Intrahepatic biliary duct dilatation is not seen. The common bile duct is barely seen and it appears certainly not dilated. There is some fluid seen around the gallbladder. The gallbladder is not distended. No gallstones are seen. The spleen, pancreas, adrenal glands and kidneys appear [place] ssly normal. There is some minimal ascites seen around the liver and spleen. The patient does have a mass in the right lung in the infrahilar region. CONCLUSION: 1. Very prominent enlargement of the liver. 2. Significant biliary duct dilatation is not seen. 3. Mild amount of ascites. 4. Right lung mass. Franco Dixon MD on March 25, 2016 at 19:16 Board Certified Radiologist. This report was verified electronically.
--- NOTE | 2016-03-25 19:34 | MB ---
cc: AVELINO KIMBALL M.D., LANE [address]. MD DATE OF CONSULTATION: 03/25/2016. REASON FOR CONSULTATION: Abdominal pain, elevated liver function tests, icterus. PATIENT OF: Dr. Martell Jenkins. HISTORY OF PRESENT ILLNESS: Ms. Pond is a 65-year-old lady who basically presented with about three to four day history of right upper quadrant discomfort, nausea, vomiting and weight loss. She says her symptoms actually started after she was put on Butrans Patches. She is a smoker and smokes about one pack of cigarettes daily. She states she has had no previous problems until about a month ago when she was put on this patch. REVIEW OF SYSTEMS: Epigastric discomfort. Nausea. No other symptoms. PAST MEDICAL HISTORY: 1. Chronic pain. 2. COPD. 3. Osteopenia. 4. Adjustment disorder. 5. Depression. PAST SURGICAL HISTORY: 1. Hysterectomy. MEDICINES ON ADMISSION: 1. Inhalers. 2. Xanax. 3. [place] caps. ALLERGIES: 1. DARVOCET. 2. NONSTEROIDALS. FAMILY HISTORY: Family history is noncontributory. SOCIAL HISTORY: Smoker for 34 years. Also drinks alcohol, mostly beer. PHYSICAL EXAMINATION: GENERAL: The physical exam reveals an elderly lady in some distress due to abdominal pain. HEAD AND NECK: Icteric sclerae. CHEST: Bilateral air entry with rales. ABDOMEN: Abdomen is soft. Distention. Tenderness in the epigastric area with some guarding. HEALTH INSURANCE SALES AGENT: Nonfocal. RECTAL: Deferred at this time. LABORATORY STUDIES: Labs reveal total bilirubin 8.8, alkaline phosphatase 591. Hepatic serologies were negative. White cell count 13.5, hemoglobin 14.9. IMAGING STUDIES: CT of the abdomen and pelvis reveals a large mass in the right hilum, hepatomegaly, ascites. CT of the thorax - large right perihilar mass with mediastinal osmani involvement. IMPRESSION: Probable lung cancer with lymph node enlargement. RECOMMENDATIONS: Not clear why the patient's liver function tests are elevated. No evidence of metastatic disease to the liver on the CT scan. I have recommended an MRCP. Check tumor markers. Continue to follow labs. The patient very likely needs a biopsy of the perihilar mass. The pulmonary service is already on the case. Will follow with you. Thank you for this referral. MD BRIGID Trent /2:29 PM /7:20 PM
[2016-03-25] MEDS: DOCUSATE SODIUM 50 MG/SENNA 8.6 MG TAB PO SCH (19:50)
[2016-03-25] MEDS: LISINOPRIL 5 MG TAB PO SCH (20:52)
[2016-03-26] VITALS (11 sets, daily range): BP systolic 96–115; BP diastolic 50–78; PULSE 75–102; RESP 15–32; TEMP 97.1–98.7; O2SAT 90–95
[2016-03-26] MEDS: HYDROmorphone HCL PF 1 MG/ML VIAL IV PUSH PRN ×3 (00:28→19:58)
[2016-03-26] MEDS ORDERED: HYDROmorphone HCL PF 1 MG/ML VIAL IV PUSH PRN (01:00)
--- NOTE | 2016-03-26 05:10 | HHI.PR ---
Addendum to Inpatient Note Addendum Reason: Additional Documentation Additional Information Subjective Residents called to evaluate patient due to persistent abdominal pain as well as some drowsiness. RN reports that patient has been crying out occasionally, and though patient denies abdominal pain she says she has been having difficulty sleeping. Patient had received additional 0.5 mg dose of Dilaudid around 0200 due to continued pain. Objective Vital signs reviewed; blood pressure had been dropping throughout day, now stable at 110s over 60s Gen.: Well-developed well-nourished older white female sitting in bed in no acute distress, drowsy Respiratory: Normal rate and effort, no distress Abdominal: Soft, exquisitely tender especially over right upper quadrant, stable from prior exams. No rebound, mild voluntary guarding. Extremities: No peripheral edema Neuro: Drowsy, difficult to arouse, but responds to questioning. No pinpoint pupils. Moves all extremities without difficulty. Assessment and Plan 65-year-old female with abdominal pain, ascites, right hilar lung mass in granuloma. Persistent abdominal pain likely secondary to underlying disease process, official diagnosis undetermined. Drowsiness likely secondary to overuse of pain medication, potentially this could explain sensitivity to touch on exam as well (opioid-induced hyperalgesia) Respiratory rate within normal limits, arousable, no need for naloxone at this time We'll hold opiate medications until morning shift We'll discuss with day team sdw Dr. Mars Alcantar,Patricio Lechuga MD R1 Mar 26, 2016 05:10
[2016-03-26] MEDS: cefTRIAXone INJ 1,000 MG in SODIUM CHLORIDE 0.9% INJ 100 ML IV SCH (06:30)
[2016-03-26] MEDS: LISINOPRIL 5 MG TAB PO SCH (08:05)
[2016-03-26] MEDS: RESP: ALBUTEROL 2.5 MG/IPRATROPIUM 0.5 MG NEB (SCH) NEB ×3 (08:07→20:31)
[2016-03-26] MEDS: SODIUM CHLORIDE 0.9% FLUSH 5 ML FLUSH FLUSH SCH ×2 (08:09→20:03)
[2016-03-26 08:25] LABS: AUTOMATED NEUTROPHIL # 14.8 TH/MM3 (1.8-7.7); BASOPHIL # 0.1 TH/MM3 (0-0.2); BASOPHIL % 0.4 % (0.0-2.0); HEMATOCRIT 45.5 % (35.0-46.0); LYMPH % 8.8 % (9.0-44.0); LYMPHOCYTE # 1.5 TH/MM3 (1.0-4.8); MEAN CELL VOLUME 90.5 FL (80.0-100.0); MEAN CORPUSCULAR HEMOGLOBIN 30.7 PG (27.0-34.0); MEAN CORPUSCULAR HGB CONC 33.9 % (32.0-36.0); MONO % 5.4 % (0.0-8.0); NEUT % 85.4 % (16.0-70.0); PLATELET COUNT 121 TH/MM3 (150-450); RED BLOOD COUNT 5.03 MIL/MM3 (4.00-5.30); RED CELL DISTRIBUTION WIDTH 14.3 % (11.6-17.2); WHITE BLOOD COUNT 17.4 TH/MM3 (4.0-11.0)
[2016-03-26 08:33] LABS: HEMO FLAGS AUTO DIFF
[2016-03-26 08:59] LABS: BLOOD GAS BASE EXCESS -3.3 mmol/L (-2-2); BLOOD GAS CARBOXYHEMOGLOBIN 1.3 % (0-4); BLOOD GAS HCO3 22 mmol/L (22-26); BLOOD GAS O2 HGB SATURATION 91 % (90-100); BLOOD GAS OXYGEN CONTENT 20.6 Vol % (12.0-20.0); BLOOD GAS PCO2 45 mmHg (38-42); BLOOD GAS PO2 76 mmHg (61-120); BLOOD GAS TOTAL HGB 16.1 G/DL (12.0-16.0); CRITICAL VALUE NO; DRAW SITE RT RADIAL; LITER FLOW 3 L/M; NUMBER OF ARTERIAL PUNCTURES 1; OXYGEN DEVICE NASAL CANNULA; STAT YES; TEMP CORR TO 98.6
--- NOTE | 2016-03-26 09:05 | HHI.FPPN ---
Subjective Remarks Overnight residents were paged as patient was calling out in pain but also seemed drowsy. Residents at that time were concerned that drowsiness was due to overmedication of Dilaudid and held continued pain medications until the morning. This morning patient's BP has dropped and is currently in the low 100s. She also appeared more confused than her baseline. She knew her name and but was unable to state the year. She kept repeating March 29 for the year. She continues to yell in pain and states her heart hurts. However when I point to different areas on her chest versus her abdomen she indiscriminately will say yes or no with no consistent pattern. Since patient seems acutely ill I do not suspect this is due to over medication of opiates but rather due to her disease process. Stat chest x-ray, EKG, INR, troponin, ammonia, UA, blood cultures ordered. Patient was transferred to the ICU and I spoke with the collision center manager Dr. Felipe about the situation who also assessed the patient at this time. (Jacki Woods MD R2) Objective Vitals Vital Signs Date Time Temp Pulse Resp B/P Pulse Ox O2 Delivery O2 Flow Rate FiO2 03/26/16 08:06 90 Nasal Cannula 2.00 03/26/16 08:00 98.0 102 20 105/60 94 03/26/16 04:00 97.3 90 18 115/57 93 03/26/16 00:00 97.1 93 16 101/52 93 03/25/16 20:00 97.1 92 20 117/61 93 03/25/16 16:00 98.4 93 24 136/72 89 03/25/16 12:00 96.2 99 28 159/81 87 I/O 03/25/16 03/25/16 03/25/16 03/26/16 03/26/16 03/26/16 07:00 15:00 23:00 07:00 15:00 23:00 Intake Total 0 ml 240 ml 240 ml 120 ml Output Total 600 ml 150 ml 325 ml 200 ml Balance -600 ml 90 ml -85 ml -80 ml Intake Oral 0 ml 240 ml 240 ml 120 ml Output Urine Total 600 ml 150 ml 325 ml 200 ml (Jacki Woods MD R2) Result Diagram: 03/26/16 0710 03/25/16 0635 Objective Remarks GENERAL: Lying in bed clearly confused. Continuously yells out in pain but does not seem to be writhing in pain. EYES: Extraocular motions intact. Scleral icterus evident. No injection or drainage. CARDIOVASCULAR: Regular rate and rhythm without murmurs, gallops, or rubs. RESPIRATORY: Decreased air movement bilaterally. No wheezes, rales, or rhonchi. GASTROINTESTINAL: Abdomen soft, tenderness to palpation of RUQ. Significant hepatomegaly. MUSCULOSKELETAL: 2+ edema. No calf tenderness. NEUROLOGICAL: Awake. Answers to name and knows . Unable to state year. Keeps repeating "" when asked the year. Normal speech. (Jacki Woods MD R2) A/P Assessment and Plan 65 year old female presented with RUQ abdominal pain. Admitted for Transminitis and severe abdominal pain. Critical Care consulted on 03/26/16 due to acute worsening of clinical status. Appreciate assistance Neuro: Found have altered mental status on 03/26 acutely. Possible encephalopathy, hypoglycemic -acute increase in ammonia from <10 to 85 -Glucose of 29 treated with D50 -ABG reassuring Medications: * lactulose 30ml QID * D10 @ 50 Cardiac: sinus tachycardia, elevated troponin, NSTEMI due to demand? -Acute elevation in troponins from <0.02 to 0.36 but without EKG changes and pt unable to clearly pinpoint pain. Suspect elevation is due to TAMIKO -Trend Troponin & EKG q8 -Cardiac telemetry -Echo ordered -BNP WNL Respiratory: Large right perihilar mass -ABG shows mild respiratory acidosis with pH of 7.31/PaCO2 45/HCO3 22/Pa02 91 -Pulmonary consulted: * need baseline pulmonary function * bronchoscopy may be needed depending on further evaluation Imaging * CXR: Right hilar mass and right lower lobe consolidation. No other acute findings * Chest CT: Large right perihilar mass with mediastinal osmani involvement. Calcified granuloma right lower lobe GI: Fulminant hepatitis?, Elevated LFTs, Elevated Bilirubin, hypoglycemia, portal vein thrombosis?, ascites No clear etiology as patient does not have a history of recent alcohol or IV drug use. Does have a history of remote drug use but none within the last 15- 16 years. -Hepatitis panel negative -INR 2.0, continues to trend upward -Daily CMP and coags -Tylenol level pending -Cane Loader to perform a bedside paracentesis GI consulted: * Not clear why the patient's liver function tests are elevated * AFP negative Imaging: * MRCP: very prominent enlargement of the liver. NO diliary duct dilation. Mild ascites. Right lung mass * KUB ordered * Liver/portal vein ultrasound ID: SBP?, sepsis? -Leukocytosis with no clear etiology. WBC today from 13 to 17.4 -Initial UA negative -Repeat UA and urine culture ordered -Blood cultures obtained: Pending Medications: * Rocephin started due to possible concern of SBP on 03/25-03/26 * Vancomycin and Zosyn started for better coverage to include both sepsis and SBP (03/26- Renal: TAMIKO baseline <1.0 -Fluids currently at D10 at 50 -Bunch ordered Monitor I's and O's Heme: Elevated INR, low platelets -SCDs Electrolytes: mild hyponatremia, hypoglycemia continue to monitor dw Dr. Jenkins sdw Dr. Segura Discharge Planning Unclear timetable dw Dr. Jenkins (Jacki Woods MD R2) Assessment and Plan Ending note: Chart reviewed, patient seen, currently undergoing an ultrasound of the hepatobiliary system which does not reveal any portal vein thrombosis or hepatic vein thrombosis, informally interpreted to indicate significant parenchymal hepatomegaly with contracted gallbladder. Currently patient is critically ill, is being followed by the collision center manager, sheeter operator, balance sheet analyst as well as primary care team. Multiple lab abnormalities including a significant hypoglycemia which has been addressed, acute transaminase anemia cholestatic picture, undiagnosed right lung mass, altered mental status. Acute renal insufficiency. Clinical picture without confirmation appears to be consistent with a lung neoplasm and acute liver injury with subsequent renal failure evolving. Exact etiology is unclear. Prognosis very guarded. Will talk with family. (Martell Jenkins MD) Problem List: (1) Abdominal pain Status: Acute (2) Hilar mass Status: Acute (3) Ascites Status: Acute (4) Transaminitis Status: Acute (5) Hyponatremia Status: Acute (Jacki Woods MD R2) Problem Qualifiers (1) Abdominal pain: Qualified Code: R10.30 - Lower abdominal pain Jacki Woods MD R2 Mar 26, 2016 09:04 Martell Jenkins MD Mar 26, 2016 15:17 Hepatitis panel is negative Consult gastroenterology, appreciate recommendations (5) Shortness of breath Status: Acute Plan: Duonebs 1 amp scheduled TID Albuterol neb q2h prn SOB (6) Hyponatremia Status: Acute Plan: Na remains at 128, continue 1.5 L fluid restriction No IVF given her ascites and anasarca Trend PT/INR and CMP daily DVT PPX: SCDs Problem Qualifiers (1) Abdominal pain: Qualified Code: R10.30 - Lower abdominal pain Jacki Woods MD R2 Mar 26, 2016 09:04
--- NOTE | 2016-03-26 09:29 | RADRPT ---
EXAM DATE/TIME: 03/26/2016 08:48 [facility] COMPARISON: CT THORAX W/O CONTRAST, March 24, 2016, 14:01. INDICATIONS : Diminished lung sounds MEDICAL HISTORY : Chronic obstructive pulmonary disease. SURGICAL HISTORY : None. ENCOUNTER: Initial ACUITY: 3 days PAIN SCORE: 8/10 LOCATION: Bilateral chest FINDINGS: Rotated and underinflated AP view of the chest demonstrates a normal-sized cardiac silhouette. There is an opacity in the right infrahilar region. No effusion, consolidation, or pneumothorax is seen. Enzo any demonstrate no acute finding. CONCLUSION: The right hilar mass and right lower lobe consolidation is again visualized. No other acute finding i s identified. Franco Jha MD on March 26, 2016 at 9:27 Board Certified Radiologist. This report was verified electronically.
[2016-03-26] MEDS ORDERED: VANCOMYCIN INJ 1,000 MG in SODIUM CHLOR 0.9% 250 ML INJ 250 ML IV SCH (11:00)
[2016-03-26 11:06] LABS: BANDS 9 % (0-6); METAMYELOCYTES 1 % (0-1); NEUTROPHIL # MANUAL DIFF 15.5 TH/MM3 (1.8-7.7); POLYS (SEG NEUTROPHILS) 79 % (16-70); WBC DIFF SAMPLE 100
[2016-03-26 11:07] LABS: CORRECTED NUCLEATED RBC 1 /100 WBC (0-0); PLATELET ESTIMATE SMEAR LOW (NORMAL); PLATELET MORPHOLOGY NORMAL (NORMAL); SCAN/DIFF FINAL DIFF MANUAL; TARGET CELLS 1+ (NORMAL)
[2016-03-26 11:08] LABS: HYPERSEGMENTED POLYS 1+ (NORMAL)
[2016-03-26] MEDS: PIPERACIL-TAZO 3.375 GM PREMIX 50 ML IV SCH ×3 (11:12→20:10)
[2016-03-26] MEDS ORDERED: SODIUM CHLOR 0.9% 1000 ML INJ 1,000 ML IV SCH (11:30)
[2016-03-26 11:39] LABS: PROTHROMBIN TIME - PATIENT 22.6 SEC (9.8-11.6)
[2016-03-26 12:12] LABS: ALKALINE PHOSPHATASE 577 U/L (45-117); ANION GAP 19 MEQ/L (5-15); BICARBONATE 21.5 MEQ/L (21.0-32.0); BLOOD UREA NITROGEN 39 MG/DL (7-18); CHLORIDE 91 MEQ/L (98-107); GLOMERULAR FILTRATION RATE 19 ML/MIN (>89); POTASSIUM 4.6 MEQ/L (3.5-5.1); SODIUM (NA) 131 MEQ/L (136-145)
[2016-03-26 12:17] LABS: TOTAL BILIRUBIN ADULT 10.5 MG/DL (0.2-1.0)
[2016-03-26] MEDS ORDERED: DEXTROSE 10% INJ 1,000 ML IV SCH (12:30)
[2016-03-26] MEDS ORDERED: Vancomycin Consult Pharmacy 1 EA OTHER SCH (13:00)
--- NOTE | 2016-03-26 13:23 | PD.CONS ---
[facility] Service Critical Care Medicine Consult Requested By Family medicine team Reason for Consult altered mental status Primary Care Physician Luis E Gustafson MD History of Present Illness This is a 65-year-old female who originally presented on 03/24 with complaints of worsening right upper quadrant abdominal pain for 3-4 weeks. This was associated with nausea. She states that this began after the use of ibuprofen or from patch. She had poor by mouth intake for the last few weeks. She also stated she had constipation and had not had a bowel movement for 2 weeks. She denied fever or chills at that time. Denied having any prior liver disease. She was admitted for workup of acute liver dysfunction. This morning, the patient was much less alert and oriented. She was mildly hypoxic requiring increasing oxygen by nasal cannula. A rapid response was called and she was transferred to the ICU. Critical care medicine was consulted to assist in managing her acute altered mental status and worsening acute liver failure. Of note her LFTs demonstrate rising transaminitis and worsening acute liver failure. Her creatinine has significantly increased over 2 this morning. She is in acute kidney injury, acute liver failure, she also has evidence of mildly elevated troponin of 0.06 suggestive of type II and STEMI /demand ischemia. She is in multiorgan system dysfunction. She also has significant right upper quadrant pain and is guarding to me. She has a rising leukocytosis to 17,000. In addition to all this, she had bedside serum glucose of 29 which is treated with D50 and started on dextrose infusion. She is significantly altered on my exam and only moaning in pain. She is unable to provide any additional history. Review of Systems ROS Limitations: Clinical Condition, Altered Mental Status Past Family Social History Allergies: Coded Allergies: Darvocet-N 100 (Verified Allergy, Severe, Nausea/Vomiting, 03/24/16) Nonsteroidal Anti-Inflammatory Agts (Verified Adverse Reaction, Severe, peptic ulcer, 03/24/16) Past Medical History Unable to be obtained from the patient due to her altered mental status. Per chart review: Chronic pain, on security disability since 1996 COPD Osteopenia Adjustment disorder Anxiety Depression Past Surgical History Past surgical history is unobtainable secondary to patient's clinical condition. Per chart review: Hysterectomy Reported Medications Unobtainable secondary to patient's clinical condition. Per chart review: Albuterol Xanax [place] buprenorphine patch Active Ordered Medications See MAR Family History The patient is unable to past family history. Per chart review: Father at age 60 of a brain aneurysm, mother still alive and with coronary artery disease, 44-year-old son with unknown history. Social History Patient is unable to provide social history due to her clinical condition. Per chart review: 1 pack per day smoking 34 years, currently half a pack per day. Last EtOH 20 years ago. Heavy drinker prior to that. History of cocaine use last 16 years ago. Physical Exam Vital Signs Vital Signs Date Time Temp Pulse Resp B/P Pulse Ox O2 Delivery O2 Flow Rate FiO2 03/26/16 10:30 97.2 95 15 96/51 92 03/26/16 08:06 90 Nasal Cannula 2.00 03/26/16 08:00 98.0 102 20 105/60 94 03/26/16 04:00 97.3 90 18 115/57 93 03/26/16 00:00 97.1 93 16 101/52 93 03/25/16 20:00 97.1 92 20 117/61 93 03/25/16 16:00 98.4 93 24 136/72 89 Physical Exam GENERAL: Middle-aged female, lying in bed in severe distress from abdominal pain. Altered, near obtunded. Only moaning HEENT: Pupils equal, round, reactive, conjugate. Positive scleral icterus. Mucous membranes are dry. NECK: Take is midline. There is no JVD. CHEST: Equal chest rise. Clear to auscultation. CARDIOVASCULAR: Tachycardic rate, regular rhythm. No appreciable murmurs. ABDOMEN: Significant weight tender to palpation, even light palpation. Cannot localize due to altered mental status. Nondistended. Voluntary guarding. MUSCULOSKELETAL: No peripheral edema. Distal pulses 2+. NEUROLOGICAL: Significantly altered. RASS -2. Only moans in pain. Does not follow commands. Laboratory Laboratory Tests Test 03/25/16 03/25/16 03/26/16 03/26/16 14:20 16:41 07:10 08:48 Blood Gas Puncture Site RT RADIAL RT RADIAL Blood Gas Patient Temperature 98.6 98.6 Blood Gas HCO3 26 22 Blood Gas Base Excess 1.6 -3.3 Blood Gas Oxygen Saturation 89 91 Arterial Blood pH 7.41 7.31 Arterial Blood Partial 42 45 Pressure CO2 Arterial Blood Partial 60 76 Pressure O2 Arterial Blood Oxygen Content 19.0 20.6 Arterial Blood 1.7 1.3 Carboxyhemoglobin Arterial Blood Methemoglobin 0.9 1.0 Blood Gas Hemoglobin 15.3 16.1 Blood Gas Inspired Oxygen 21 Tumor Marker Alpha Fetoprotein 2.4 White Blood Count 17.4 Red Blood Count 5.03 Hemoglobin 15.4 Hematocrit 45.5 Mean Corpuscular Volume 90.5 Mean Corpuscular Hemoglobin 30.7 Mean Corpuscular Hemoglobin 33.9 Concent Red Cell Distribution Width 14.3 Platelet Count 121 Mean Platelet Volume 9.0 Neutrophils (%) (Auto) 85.4 Lymphocytes (%) (Auto) 8.8 Monocytes (%) (Auto) 5.4 Eosinophils (%) (Auto) 0.0 Basophils (%) (Auto) 0.4 Neutrophils # (Auto) 14.8 Lymphocytes # (Auto) 1.5 Monocytes # (Auto) 0.9 Eosinophils # (Auto) 0.0 Basophils # (Auto) 0.1 CBC Comment AUTO DIFF Differential Total Cells 100 Counted Neutrophils % (Manual) 79 Band Neutrophils % 9 Lymphocytes % 4 Monocytes % 7 Neutrophils # (Manual) 15.5 Metamyelocytes 1 Nucleated Red Blood Cells 1 Differential Comment FINAL DIFF MANUAL Hypersegmented Polys 1+ Platelet Estimate LOW Platelet Morphology Comment NORMAL Target Cells 1+ Oxygen Delivery Device NASAL CANNULA Blood Gas Liter Flow 3 Test 03/26/16 03/26/16 10:57 11:03 Prothrombin Time 22.6 Prothromb Time International 2.0 Ratio Ammonia 84 Sodium Level 131 Potassium Level 4.6 Chloride Level 91 Carbon Dioxide Level 21.5 Anion Gap 19 Blood Urea Nitrogen 39 Creatinine 2.58 Estimat Glomerular Filtration 19 Rate Random Glucose 12 Calcium Level 9.3 Total Bilirubin 10.5 Alkaline Phosphatase 577 Troponin I 0.36 Total Protein 5.3 Albumin 2.7 Date/Time Procedure Status Source Growth 03/26/16 11:03 Aerobic Blood Culture Received Blood Peripheral Pending 03/26/16 11:03 Anaerobic Blood Culture Received Blood Peripheral Pending Result Diagram: 03/26/16 0710 03/26/16 1103 Imaging 03/25 CT chest and pelvis: Right hilar mass suspicious for malignancy. Significantly enlarged liver. 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 Her lung mass is concerning for malignancy. If this turns out to be malignant, she would not be a transplant candidate, and the combination of the two really is a non-survivable insult. If this isn't malignant, we will work towards getting her to a transplant center for further work-up, as I do not know of an absolute contra-indication for orthotopic liver transplantation at this time. Plan by systems: Neurologic: Hepatic encephalopathy Severe liver capsular pain Lactulose every 6 Neuro every hour neuro checks Hold long-acting sedating meds Dilaudid 0.5 mg IV every 4 hours when necessary Respiratory: Atelectasis Hypoxia Right hilar mass Wean oxygen by nasal cannula for goal SPO2 greater than 90% Incentive spirometer to bedside Nebs every [address] Castro following. I had a discussion today. we need biopsy to prove malignancy or rule it out to move on to the next decision which is possible transplantation work-up. Cardiovascular: Sinus tachycardia Likely a combination of pain and acute pulmonary liver failure Renal: Acute kidney injury Possible type I hepatorenal syndrome Possibly secondary to follow liver failure. -- Strict I/Os Continue Bunch FEN/GI: Intravascular volume overload Acute fulminant liver failure Acute protein calorie malnutritionmild q6 hour LFTs and coags Nothing by mouth Stat hepatic Dopplers to rule out hepatic artery, portal vein thrombosis MRCP without evidence of obstruction CT abdomen and pelvis without obvious lesions Gastroenterology on board. Heme/ID: Coagulopathy secondary liver disease Leukocytosis Trend coags every 6 No active bleeding. Does not meet transfusion triggers at this time Daily CBC [place] culture. Empiric coverage with vancomycin and Zosyn I was planning on diagnostic peritoneal tap to rule out SBP, however, critical care bedside ultrasound does not demonstrate any pocket of safe intra-abdominal perineal fluid. We will consider interventional radiology CT-guided diagnostic tap in the morning. Endocrine: Hypoglycemia secondary to acute fulminant liver failure D10 at 50 cc an hour Every hour glucose checks Prophylaxis: GI Prophylaxis Protonix 40 mg IV daily 24 hours DVT Prophylaxis -- SCDs Hold DVT prophylaxis in the setting of coagulopathy Lines: Peripheral IVs. Bunch Dispo: Admitted to the ICU. She is very critically ill. I had a discussion with family medicine team as well as the patient's family. They understand how guarded her condition is. We will continue to aggressively manage her at this time. This patient remains critically ill with one or more organ systems which are or may become a threat to life. I have spent in excess of 78 minutes discontinuously in the care and management of this patient. This time is exclusive of procedures, and includes, but is not limited to, evaluation of the patient, review of the medical record, discussions with family, consultants, nursing staff, or respiratory therapy, and documentation in the medical record. Code Status Full Code Discussed Condition With pulmonology, gastroenterology, family medicine, family at bedside, bedside RN. Angel Segura MD Mar 26, 2016 13:23
[2016-03-26 13:34] LABS: ALT (GPT) 1035 U/L (10-53); AST (GOT) 2758 U/L (15-37)
[2016-03-26] MEDS: LACTULOSE SYRUP 20 GM/30 ML CUP PO SCH ×3 (13:41→20:10)
--- NOTE | 2016-03-26 13:43 | HHI.GIFU ---
GI Follow-up Note Consult Follow-up Subjective: Patient laying in bed comfortably, no new complaints except abdominal pain Objective: PHYSICAL EXAMINATION: Vitals signs stable No fever HEENT: Pupils round and reactive to light; normocephalic; atraumatic; no jaundice. Throat is clear. NECK: Neck is supple, no JVD, no lymphadenopathy. CHEST: Chest is clear to auscultation and percussion. CARDIAC: Regular rate and rhythm with no murmur gallop or rubs. ABDOMEN: Soft, nondistended, nontender; no hepatosplenomegaly; bowel sounds are present in all four quadrants. EXTREMITIES: No clubbing, cyanosis, or edema. SKIN: Normal; no rash; no jaundice. INSTRUMENTATION DESIGNER: No focal deficits; alert and oriented times three. Available Data (labs, X- Rays, Procedues) : Last Impressions Chest X-Ray 03/26/16 0000 Signed Impressions: Service Date/Time: Saturday, March 26, 2016 08:48 - CONCLUSION: The right hilar mass and right lower lobe consolidation is again visualized. No other acute finding is identified. Franco Jha MD Cholangiopancreatography MRI 03/25/16 0000 Signed Impressions: Service Date/Time: Friday, March 25, 2016 18:22 - CONCLUSION: 1. Very prominent enlargement of the liver. 2. Significant biliary duct dilatation is not seen. 3. Mild amount of ascites. 4. Right lung mass. Franco Dixon MD Chest CT 03/24/16 1406 Signed Impressions: Service Date/Time: Thursday, March 24, 2016 14:01 - CONCLUSION: Large right perihilar mass with mediastinal osmani involvement. Calcified granuloma right lower lobe. No evidence of destructive bone lesions. Emanuel Gannon MD Abdomen/Pelvis CT 03/24/16 1129 Signed Impressions: Service Date/Time: Thursday, March 24, 2016 14:01 - CONCLUSION: 1. No evidence of metastatic disease. 2. Ascites and anasarca. 3. Hepatomegaly Jameson Maher MD Laboratory Tests Test 03/24/16 03/25/16 03/25/16 03/25/16 14:00 00:52 06:35 14:20 Urine Color DARK-ORANGE Urine Turbidity HAZY Urine pH 6.5 Urine Specific Loring 1.027 Urine Protein 30 mg/dL Urine Glucose (UA) NEG mg/dL Urine Ketones 10 mg/dL Urine Occult Blood NEG Urine Nitrite NEG Urine Bilirubin MOD Urine Urobilinogen 2.0 MG/DL Urine Leukocyte Esterase TRACE Urine RBC 2 /hpf Urine WBC 7 /hpf Urine Squamous Epithelial 6 /hpf Cells Urine Bacteria OCC /hpf Urine Hyaline Casts 1 /lpf Urine Mucus FEW /lpf Microscopic Urinalysis Comment CULT NOT INDICATED B-Type Natriuretic Peptide 54 PG/ML White Blood Count 13.5 TH/MM3 Red Blood Count 4.82 MIL/MM3 Hemoglobin 14.9 GM/DL Hematocrit 43.6 % Mean Corpuscular Volume 90.5 FL Mean Corpuscular Hemoglobin 30.9 PG Mean Corpuscular Hemoglobin 34.2 % Concent Red Cell Distribution Width 13.9 % Platelet Count 92 TH/MM3 Mean Platelet Volume 8.4 FL Neutrophils (%) (Auto) 81.1 % Lymphocytes (%) (Auto) 12.7 % Monocytes (%) (Auto) 5.8 % Eosinophils (%) (Auto) 0.2 % Basophils (%) (Auto) 0.2 % Neutrophils # (Auto) 11.0 TH/MM3 Lymphocytes # (Auto) 1.7 TH/MM3 Monocytes # (Auto) 0.8 TH/MM3 Eosinophils # (Auto) 0.0 TH/MM3 Basophils # (Auto) 0.0 TH/MM3 CBC Comment AUTO DIFF Differential Comment AUTO DIFF CONFIRMED Platelet Estimate LOW Platelet Morphology Comment NORMAL Red Cell Morphology Comment NORMAL Prothrombin Time 16.9 SEC Prothromb Time International 1.5 RATIO Ratio Sodium Level 128 MEQ/L Potassium Level 3.5 MEQ/L Chloride Level 88 MEQ/L Carbon Dioxide Level 27.8 MEQ/L Anion Gap 12 MEQ/L Blood Urea Nitrogen 19 MG/DL Creatinine 0.72 MG/DL Estimat Glomerular Filtration 82 ML/MIN Rate Random Glucose 80 MG/DL Calcium Level 8.5 MG/DL Total Bilirubin 8.8 MG/DL Aspartate Amino Transf 340 U/L (AST/SGOT) Alanine Aminotransferase 320 U/L (ALT/SGPT) Alkaline Phosphatase 591 U/L Troponin I LESS THAN 0.02 NG/ML Total Protein 5.6 GM/DL Albumin 2.9 GM/DL Blood Gas Puncture Site RT RADIAL Blood Gas Patient Temperature 98.6 Blood Gas HCO3 26 mmol/L Blood Gas Base Excess 1.6 mmol/L Blood Gas Oxygen Saturation 89 % Arterial Blood pH 7.41 Arterial Blood Partial 42 mmHg Pressure CO2 Arterial Blood Partial 60 mmHg Pressure O2 Arterial Blood Oxygen Content 19.0 Vol % Arterial Blood 1.7 % Carboxyhemoglobin Arterial Blood Methemoglobin 0.9 % Blood Gas Hemoglobin 15.3 G/DL Blood Gas Inspired Oxygen 21 % Test 03/25/16 03/26/16 03/26/16 03/26/16 16:41 07:10 08:48 10:57 Tumor Marker Alpha Fetoprotein 2.4 NG/ML White Blood Count 17.4 TH/MM3 Red Blood Count 5.03 MIL/MM3 Hemoglobin 15.4 GM/DL Hematocrit 45.5 % Mean Corpuscular Volume 90.5 FL Mean Corpuscular Hemoglobin 30.7 PG Mean Corpuscular Hemoglobin 33.9 % Concent Red Cell Distribution Width 14.3 % Platelet Count 121 TH/MM3 Mean Platelet Volume 9.0 FL Neutrophils (%) (Auto) 85.4 % Lymphocytes (%) (Auto) 8.8 % Monocytes (%) (Auto) 5.4 % Eosinophils (%) (Auto) 0.0 % Basophils (%) (Auto) 0.4 % Neutrophils # (Auto) 14.8 TH/MM3 Lymphocytes # (Auto) 1.5 TH/MM3 Monocytes # (Auto) 0.9 TH/MM3 Eosinophils # (Auto) 0.0 TH/MM3 Basophils # (Auto) 0.1 TH/MM3 CBC Comment AUTO DIFF Differential Total Cells 100 Counted Neutrophils % (Manual) 79 % Band Neutrophils % 9 % Lymphocytes % 4 % Monocytes % 7 % Neutrophils # (Manual) 15.5 TH/MM3 Metamyelocytes 1 % Nucleated Red Blood Cells 1 /100 WBC Differential Comment FINAL DIFF MANUAL Hypersegmented Polys 1+ Platelet Estimate LOW Platelet Morphology Comment NORMAL Target Cells 1+ Blood Gas Puncture Site RT RADIAL Blood Gas Patient Temperature 98.6 Blood Gas HCO3 22 mmol/L Blood Gas Base Excess -3.3 mmol/L Blood Gas Oxygen Saturation 91 % Arterial Blood pH 7.31 Arterial Blood Partial 45 mmHg Pressure CO2 Arterial Blood Partial 76 mmHg Pressure O2 Arterial Blood Oxygen Content 20.6 Vol % Arterial Blood 1.3 % Carboxyhemoglobin Arterial Blood Methemoglobin 1.0 % Blood Gas Hemoglobin 16.1 G/DL Oxygen Delivery Device NASAL CANNULA Blood Gas Liter Flow 3 L/M Prothrombin Time 22.6 SEC Prothromb Time International 2.0 RATIO Ratio Ammonia 84 MCMOL/L Test 03/26/16 11:03 Sodium Level 131 MEQ/L Potassium Level 4.6 MEQ/L Chloride Level 91 MEQ/L Carbon Dioxide Level 21.5 MEQ/L Anion Gap 19 MEQ/L Blood Urea Nitrogen 39 MG/DL Creatinine 2.58 MG/DL Estimat Glomerular Filtration 19 ML/MIN Rate Random Glucose 12 MG/DL Calcium Level 9.3 MG/DL Total Bilirubin 10.5 MG/DL Aspartate Amino Transf 2758 U/L (AST/SGOT) Alanine Aminotransferase 1035 U/L (ALT/SGPT) Alkaline Phosphatase 577 U/L Troponin I 0.36 NG/ML Total Protein 5.3 GM/DL Albumin 2.7 GM/DL Acetaminophen Level LESS THAN 2.0 MCG/ML Allergies Coded Allergies Type Severity Reaction Last Updated Verified Darvocet-N 100 Allergy Severe Nausea/Vomiting 03/24/16 Yes Nonsteroidal Anti-Inflammatory Agts Adverse Reaction Severe peptic ulcer Yes Active Scripts Medications Dose Route/Sig Days Date Category Nebusal Neb (Sodium Chloride) 3 % Neb Unknown Dose NEB Q6HR NEB 03/24/16 Reported Albuterol (Albuterol Sulfate) 2 Mg Tab Unknown Dose PO TID 03/24/16 Reported Xanax (Alprazolam) 0.25 Mg Tab Unknown Dose PO Q4H PRN 03/24/16 Reported Alto (Hydrocodone-Acetaminophen) 10-325 Mg Tab 1 Tab PO Q6H PRN 03/24/16 Reported ASSESSMENT/PLAN: Seen and examined win the presence of mom, transferred to icu with altered mental status and worsening abdominal pain. pulmonary and warehouse team member consults obtained. MRCP shows markedly enlarged liver of unclear etiology. Suspect malignancy. Bronchoscopy planned for tomorrow. May need liver biopsy if bronchoscopy un diagnostic. Monitor renal functions closely. ? surgical consult. It was a pleasure seeing Citlaly Pond Thank you for this consult. Entered by: Liu Metzger MD Mar 26, 2016 13:43
[2016-03-26] MEDS ORDERED: ALBUMIN HUMAN 5% 25 GM/500 ML BOTTLE IV ONE (15:45)
[2016-03-26 16:18] LABS: BLOOD, URINE MOD (NEG); GLUCOSE,URINE NEG (NEG); HYALINE CAST, URINE 17 /lpf (RARE); KETONE, URINE NEG (NEG); MUCUS URINE FEW /lpf (OCC); NITRITE,URINE NEG (NEG); PH, URINE 5.5 (5.0-8.5); SQUAMOUS EPITHELIAL CELL URINE 1 /hpf (0-5)
[2016-03-26 16:22] LABS: COMMENT (UR) CATH-CULT NOT IND; CULTURE IF INDICATED CATH CULTURE NOT IND; URINE COLOR DARK-BROWN (YELLW/STRAW)
[2016-03-26] MEDS ORDERED: LIDOCAINE HCL 1% 50 ML VIAL ONE (16:45)
--- NOTE | 2016-03-26 16:56 | RADRPT ---
EXAM DATE/TIME: 03/26/2016 16:23 [facility] COMPARISON: CT ABDOMEN & PELVIS W CONTRAST, March 24, 2016, 14:01. INDICATIONS : Abdominal pain. MEDICAL HISTORY : Chronic obstructive pulmonary disease. SURGICAL HISTORY : Hysterectomy. section. ENCOUNTER: Subsequent ACUITY: 1 week PAIN SCORE: 10/10 LOCATION: Bilateral lower quadrant FINDINGS: There is increased soft-tissue density in the upper abdomen. Based on the appearance of a prior CT e xamination this is all thought to be secondary to an enlarged liver. The bowel is displaced inferior ly. Contrast is seen within nondistended segments of bowel. Free air is not seen. Spurs are seen i n the lumbar spine. CONCLUSION: Massive enlargement of the liver. Franco Dixon MD on March 26, 2016 at 16:46 Board Certified Radiologist. This report was verified electronically.
--- NOTE | 2016-03-26 17:00 | RADRPT ---
EXAM DATE/TIME: 03/26/2016 14:42 [facility] COMPARISON: No previous studies available for comparison. INDICATIONS : Abdominal pain. MEDICAL HISTORY : Chronic obstructive pulmonary disease. Gastroesophageal reflux disease. Osteopenia. Depression. Anx iety. SURGICAL HISTORY : section. Hysterectomy. ENCOUNTER: Initial ACUITY: 1 day PAIN SCORE: 9/10 LOCATION: Abdomen. MEASUREMENTS: LIVER: 22.8 cm length COMMON DUCT: 4 mm RIGHT KIDNEY: 11.5 x 4.6 x 3.9 cm SPLEEN: 7.9 cm length FINDINGS: LIVER: The liver is very prominently enlarged. No focal hepatic lesions are seen. COMMON DUCT: No intraluminal mass or stone visualized. GALLBLADDER: No stones are seen. The gallbladder is contracted. The gallbladder wall does appear thickened. PANCREAS: The visualized portions are within normal limits. RIGHT KIDNEY: No hydronephrosis, stone or mass. SPLEEN: No focal lesion. CONCLUSION: 1. Severe hepatomegaly. 2. Nonspecific gallbladder wall thickening. The gallbladder is not fully distended. Gallbladder wall thickening can be seen with hepatic disease. No gallstones are seen. Franco Dixon MD on March 26, 2016 at 16:57 Board Certified Radiologist. This report was verified electronically.
--- NOTE | 2016-03-26 17:29 | EC ---
Study Study Date:03/26/2016 STUDY CONCLUSIONS SUMMARY - Left ventricle: The cavity size was normal. Systolic function was hyperdynamic. The estimated ejection fraction was in the range of 70% to 75%. Wall motion was normal; there were no regional wall motion abnormalities. Doppler parameters are consistent with abnormal left ventricular relaxation (grade 1 diastolic dysfunction). - Mitral valve: Mild regurgitation. If LV function is below 40, please consider prescribing an ACEI or ARB or document rationale for non-use. PROCEDURE DATA STUDY STATUS: Elective. Procedure: Transthoracic echocardiography. Image quality was good. Scanning was performed from the parasternal, apical, and subcostal acoustic windows. Study completion: The patient tolerated the procedure well. Transthoracic echocardiography. M-mode, complete 2D, complete spectral Doppler, and color Doppler. Height: Height: 63in. Weight: Weight: 137.7lb. Body mass index: BMI: 24.4kg/m^2. Body surface area: BSA: 1.65m^2. Patient status: Inpatient. CARDIAC ANATOMY LEFT VENTRICLE: The cavity size was normal. Systolic function was hyperdynamic. The estimated ejection fraction was in the range of 70% to 75%. Wall motion was normal; there were no regional wall motion abnormalities. Doppler parameters are consistent with abnormal left ventricular relaxation (grade 1 diastolic dysfunction). AORTIC VALVE: The valve appears to be grossly normal. Doppler: There was no stenosis. No significant regurgitation. Valve area: 1.58cm^2(VTI). Indexed valve area: 0.96cm^2/m^2 (VTI). Valve area: 1.47cm^2 (Vmax). Indexed valve area: 0.89cm^2/m^2 (Vmax). Mean gradient: 5mm Hg (S). MITRAL VALVE: The valve appears to be grossly normal. Doppler: There was no evidence for stenosis. Mild regurgitation. LEFT ATRIUM: The atrium was normal in size. RIGHT VENTRICLE: The cavity size was normal. Systolic function was normal. PULMONIC VALVE: Not well visualized. TRICUSPID VALVE: The valve appears to be grossly normal. Doppler: There was no evidence for stenosis. Trace regurgitation. PERICARDIUM: There was no pericardial effusion. Patient weight: 137.7lb _Ejection fraction:_ 65-75% _Fractional shortening:_ 32% up to 5Kg 5-11.5Kg 11.6-22.9Kg 23-45Kg 45-57Kg Aortic Root 7-13 <17 13-22 17-27 17-27 LA diam 6-13 <23 24-38 33-47 37-40 RVID 10-17 7-15 7-15 7-18 8-17 LVIDd 12-22 <32 24-38 33-47 37-40 LVPW 2-4 3-6 5-7 6-8 7-8 IVS 2-4 3-6 5-7 6-8 7-8 BASIC MEASUREMENTS ADULT NORMAL Left ventricle LV internal dimension, ED, chordal *31.4 mm 43-52 level, PLAX LV internal dimension, ES, chordal *19.1 mm 23-38 level, PLAX Fractional shortening, chordal level, 39 % >29 PLAX LV posterior wall thickness, ED 9.1 mm IVS/LVPW ratio, ED 1.01 <1.3 Ventricular septum Septal thickness, ED 9.17 mm Aortic valve Leaflet separation 18 mm 15-26 Aorta Root diameter, ED 28 mm Left atrium Anterior-posterior dimension 22 mm Anterior-posterior dimension index 1.33 cm/m^2 <2.2 BASIC MEASUREMENTS ADULT NORMAL Aortic valve Leaflet separation 18 mm 15-26 DOPPLER MEASUREMENTS ADULT NORMAL Aortic valve Peak velocity, S 142 cm/s Mean velocity, S 100 cm/s VTI, S 17.9 cm Mean gradient, S 5 mm Hg Valve area, VTI 1.58 cm^2 Valve area index, VTI 0.96 cm^2/m^2 Valve area, Vmax 1.47 cm^2 Valve area index, Vmax 0.89 cm^2/m^2 Mitral valve Peak E-wave velocity 57.8 cm/s Peak A-wave velocity 82.9 cm/s Deceleration time *236 ms 150-230 Peak E/A ratio 0.7 Pulmonic valve Peak velocity, S 81.2 cm/s LEGEND: Mean values are shown as u=mean value. Asterisk (*) cha values outside specified normal range. Prepared and signed by Bong Shah [id number]
[2016-03-26 18:40] LABS: APTT (PATIENT) 45.4 SEC (24.3-30.1); INTERNATIONAL NORMALIZED RATIO 2.1 RATIO; PROTHROMBIN TIME - PATIENT 23.5 SEC (9.8-11.6)
[2016-03-26 19:50] LABS: INDIRECT BILIRUBIN 2.1 MG/DL (0.0-0.8); TOTAL BILIRUBIN ADULT 9.1 MG/DL (0.2-1.0)
[2016-03-26 20:09] LABS: CKMB 33.6 NG/ML (0.5-3.6)
[2016-03-26] MEDS: DOCUSATE SODIUM 50 MG/SENNA 8.6 MG TAB PO SCH (20:10)
--- NOTE | 2016-03-26 21:04 | MB ---
cc: BALDO YANG M.D. DATE OF CONSULTATION 03/26/2016 REASON FOR CONSULTATION Severe abdominal pain. HISTORY OF PRESENT ILLNESS Ms. Pond is an unfortunate 65-year-old female who was admitted on 03/24/2016 with a complaint of right upper quadrant abdominal pain for several weeks. She has had associated nausea and vomiting. She has also noted to have been jaundiced. She apparently has declined during her hospitalization and has required transfer to the medical intensive care unit. She has had a very extensive workup which shows a large right lung mass with mediastinal adenopathy. She also has significant hepatomegaly with anasarca and ascites. The patient is unable to give a history at all as she is basically incapacitated and moaning and yelling out, unable to follow any commands. The majority of the history was taken by reviewing the EMR. Apparently she was transferred to the medical intensive care unit earlier today when she was thought to be lethargic from pain medication. During her hospitalization she has gradually declined and has now developed multiorgan system failure. Specifically she has renal insufficiency and hepatic insufficiency. Her LFTs continue to go up and etiology is unclear at this time. After reviewing multiple physicians examinations there is no significant documented right upper quadrant pain. Many of the physicians have documented abdomen soft and nontender. Apparently today when she was examined there was some abdominal pain noted and surgical consultation was requested. Per the chart the patient has no history of gallbladder dysfunction that I can see. In discussing with the nursing staff in the medical ICU they said that they were aware of no history of gallbladder dysfunction. Unfortunately as stated above the patient is completely incapacitated and unable to give any history whatsoever. PAST MEDICAL HISTORY Includes: 1. Previous substance abuse. 2. Chronic pain. 3. COPD. 4. Some mental illness in the past. PAST SURGICAL HISTORY She has apparently had a hysterectomy only. That is all that is documented in the EMR. MEDICATIONS Her medication list is extensive. Please see the chart. Apparently she was recently taking some pain patches for her back and this is when her right upper quadrant pain developed. FAMILY HISTORY Her family history is unremarkable for any significant malignancy that is documented. SOCIAL HISTORY She is a previous smoker, a pack a day. She also used to be a heavy alcohol user but has quit drinking for approximately 20 years. She also used to use illicit drugs but she has not used these in quite some time. Apparently she lives in assisted living facility. ALLERGIES SHE HAS ALLERGY TO DARVOCET AND NSAIDS. REVIEW OF SYSTEMS Unobtainable. PHYSICAL EXAMINATION VITAL SIGNS: Temperature is 98, pulse is 90, blood pressure 130/70, respiratory rate 22. O2 saturation is 92% on nasal cannula and 89% on room air. GENERAL: This is a disheveled female moaning and groaning in pain, not following any commands. She basically yells out in pain wherever you touch her. HEENT: Her sclerae are jaundiced. Oropharynx is moist. NECK: Her neck is supple. No masses. LUNGS: Clear to auscultation bilaterally. HEART: S1-S2, no murmur. CHEST: Diffusely tender wherever I palpate it. ABDOMEN: Diffusely tender wherever I palpate it. She has obvious hepatomegaly with the liver edge extending all way down to the iliac crest. She has a wound in her right lower quadrant which appears to be some type of procedure site although there is no procedures documented in the EMR that I can appreciate. She has a low transverse incision from her hysterectomy. She has no obvious hernias. She has obvious ascites. EXTREMITIES: Free range of motion x4. NEUROLOGICAL: She is confused, agitated, unable to follow commands. Moaning and groaning, yelling out intermittently. She screams out in pain wherever you touch her. IMAGING STUDIES All imaging reviewed including an MRCP, a chest CT and abdomen pelvis. Specifically there is no evidence of obvious gallbladder disease. She does have some pericholecystic fluid but I believe this is secondary to her ascites. She does not have any gallstones that I can appreciate. She does not have any biliary ductal dilatation. She does have a large right lung mass with mediastinal lymph nodes. She does not have any ischemic appearing bowel or free air. LABORATORY DATA Currently her white count is 17.4 with a hemoglobin of 15, a platelet count of 121. Currently her labs, her sodium is 131. Her creatinine is 2.58, her BUN is 39. Her glucose is 12. Her bilirubin is 10.5. AST is 2758, ALT is 1035. Alkaline phosphatase is 577. Ammonia level is 84, total protein 5.3, albumin 2.7. IMPRESSION Multiorgan system dysfunction with acute liver insufficiency. PLAN At this point I see no surgical problems in the patient's acute presentation. Specifically she has no evidence of ischemic or perforated bowel. She has no evidence of acute cholecystitis that I can appreciate. I believe she is in multiorgan system failure and her right upper quadrant pain is secondary to her significant hepatomegaly causing distension of Jose Carlos's capsule. I am not sure the patient is a surgical candidate at this time. I think an exploratory laparotomy would be of low yield in this patient. I discussed this with the nursing staff. I have put a page out to Dr. Felipe to see if he has any concerns from a critical care standpoint. At this point I have no surgical intervention to offer. MD CHRIS Mejia/MARIA ALEJANDRA /2:31 PM /8:49 PM
--- NOTE | 2016-03-26 23:10 | EKG ---
Date Performed: 03/26/2016 Time Performed: 09:16:59 PTAGE: 65 years EKG: Sinus rhythm WITH SHORT MN INTERVAL POSSIBLE LEFT ATRIAL ENLARGEMENT BORDERLINE ECG PREVIOUS TRACING : 03/25/2016 07.05 Compared to prior tracing no significant change DOCTOR: Bong Shah Interpretating Date/Time 03/26/2016 23:09:45
[2016-03-26] MEDS ORDERED: METOPROLOL TARTRATE 25 MG TAB PO PRN (23:15)
[2016-03-26] MEDS ORDERED: SODIUM CHLORID 0.9% 500 ML IV SCH (23:15)
[2016-03-26] MEDS ORDERED: LACTATED RINGER'S 1000 ML IV SCH (23:15)
[2016-03-26] MEDS ORDERED: INSULIN HUMAN REGULAR 1,000 UNITS/10 ML VIAL SQ PRN (23:15)
[2016-03-26] MEDS: SODIUM CHLORIDE 23.4% INJ 154 MEQ in DEXTROSE 10% INJ 1,000 ML IV SCH (23:46)
[2016-03-27] VITALS (14 sets, daily range): BP systolic 84–110; BP diastolic 49–62; PULSE 71–105; RESP 16–28; TEMP 97.5–99.1; O2SAT 89–100
[2016-03-27 00:27] LABS: APTT (PATIENT) 46.8 SEC (24.3-30.1); INTERNATIONAL NORMALIZED RATIO 2.1 RATIO; PROTHROMBIN TIME - PATIENT 23.9 SEC (9.8-11.6)
[2016-03-27 00:54] LABS: INDIRECT BILIRUBIN 1.8 MG/DL (0.0-0.8); TOTAL BILIRUBIN ADULT 9.2 MG/DL (0.2-1.0)
[2016-03-27] MEDS: HYDROmorphone HCL PF 1 MG/ML VIAL IV PUSH PRN ×4 (01:04→17:25)
[2016-03-27] MEDS: PIPERACIL-TAZO 3.375 GM PREMIX 50 ML IV SCH ×2 (04:25→11:47)
[2016-03-27 05:11] LABS: HEMATOCRIT 38.4 % (35.0-46.0); MEAN CORPUSCULAR HGB CONC 34.1 % (32.0-36.0); PLATELET COUNT 65 TH/MM3 (150-450); RED BLOOD COUNT 4.22 MIL/MM3 (4.00-5.30); RED CELL DISTRIBUTION WIDTH 14.1 % (11.6-17.2); WHITE BLOOD COUNT 10.1 TH/MM3 (4.0-11.0)
[2016-03-27 05:18] LABS: APTT (PATIENT) 46.1 SEC (24.3-30.1); INTERNATIONAL NORMALIZED RATIO 2.1 RATIO; PROTHROMBIN TIME - PATIENT 23.9 SEC (9.8-11.6)
[2016-03-27 05:29] LABS: HEMO FLAGS AUTO DIFF
[2016-03-27 05:34] LABS: ANION GAP 12 MEQ/L (5-15); BICARBONATE 25.4 MEQ/L (21.0-32.0); BLOOD UREA NITROGEN 50 MG/DL (7-18); CHLORIDE 91 MEQ/L (98-107); GLOMERULAR FILTRATION RATE 13 ML/MIN (>89); POTASSIUM 4.4 MEQ/L (3.5-5.1); SODIUM (NA) 128 MEQ/L (136-145)
[2016-03-27 05:55] LABS: ALKALINE PHOSPHATASE 436 U/L (45-117); ALT (GPT) 1543 U/L (10-53); AST (GOT) 4038 U/L (15-37); CREATINE KINASE 1574 U/L (26-192); TOTAL BILIRUBIN ADULT 9.4 MG/DL (0.2-1.0)
[2016-03-27 06:12] LABS: CKMB 23.3 NG/ML (0.5-3.6)
[2016-03-27 07:01] LABS: BANDS 14 % (0-6); CORRECTED NUCLEATED RBC 2 /100 WBC (0-0); NEUTROPHIL # MANUAL DIFF 9.3 TH/MM3 (1.8-7.7); POLYS (SEG NEUTROPHILS) 78 % (16-70); WBC DIFF SAMPLE 100
[2016-03-27 07:04] LABS: PLATELET ESTIMATE SMEAR LOW (NORMAL); PLATELET MORPHOLOGY NORMAL (NORMAL); SCAN/DIFF FINAL DIFF MANUAL
[2016-03-27] MEDS: LACTULOSE SYRUP 20 GM/30 ML CUP PO SCH ×4 (08:19→21:00)
[2016-03-27] MEDS: SODIUM CHLORIDE 0.9% FLUSH 5 ML FLUSH FLUSH SCH ×2 (08:20→21:00)
[2016-03-27] MEDS: RESP: ALBUTEROL 2.5 MG/IPRATROPIUM 0.5 MG NEB (SCH) NEB ×2 (08:37→22:11)
[2016-03-27] MEDS ORDERED: SODIUM CHLORIDE 0.9% FLUSH 5 ML FLUSH IVF PRN (08:45)
--- NOTE | 2016-03-27 09:15 | HHI.GIFU ---
Subjective Remarks Resting in bed. Confused. Pt is having generalized tenderness. (Kianna Israel) Objective Vitals I&O Vital Signs Date Time Temp Pulse Resp B/P Pulse Ox O2 Delivery O2 Flow Rate FiO2 03/27/16 08:38 93 Nasal Cannula 5.00 03/27/16 06:00 89 03/27/16 05:53 19 03/27/16 04:00 99.1 92 27 99/49 94 03/27/16 04:00 92 03/27/16 02:00 94 03/27/16 00:00 96 03/27/16 00:00 98.9 96 17 102/50 93 03/26/16 22:00 97 03/26/16 20:32 93 Nasal Cannula 5.00 03/26/16 20:00 97 03/26/16 20:00 98.6 97 19 102/50 93 03/26/16 16:00 98.7 101 32 105/52 95 03/26/16 12:00 97.9 93 26 94 03/26/16 10:30 97.2 95 15 96/51 92 I/O 03/26/16 03/26/16 03/26/16 03/27/16 03/27/16 03/27/16 07:00 15:00 23:00 07:00 15:00 23:00 Intake Total 120 ml 510 ml 409 ml 1054 ml Output Total 200 ml 50 ml 200 ml 100 ml Balance -80 ml 460 ml 209 ml 954 ml Intake Oral 120 ml 0 ml 0 ml IV Total 510 ml 409 ml 1054 ml Output Urine Total 200 ml 50 ml 150 ml 25 ml Stool Total 0 ml 0 ml Gastric Drainage Total 50 ml 75 ml Laboratory Laboratory Tests Test 03/26/16 03/26/16 03/26/16 03/26/16 10:30 10:57 11:03 13:00 Nasal Screen MRSA (PCR) NEGATIVE Prothrombin Time 22.6 Prothromb Time International 2.0 Ratio Ammonia 84 Sodium Level 131 Potassium Level 4.6 Chloride Level 91 Carbon Dioxide Level 21.5 Anion Gap 19 Blood Urea Nitrogen 39 Creatinine 2.58 Estimat Glomerular Filtration 19 Rate Random Glucose 12 Calcium Level 9.3 Total Bilirubin 10.5 Aspartate Amino Transf 2758 (AST/SGOT) Alanine Aminotransferase 1035 (ALT/SGPT) Alkaline Phosphatase 577 Troponin I 0.36 Total Protein 5.3 Albumin 2.7 Acetaminophen Level LESS THAN 2.0 Urine Color DARK-BROWN Urine Turbidity CLOUDY Urine pH 5.5 Urine Specific [place] 1.022 Urine Protein 300 Urine Glucose (UA) NEG Urine Ketones NEG Urine Occult Blood MOD Urine Nitrite NEG Urine Bilirubin MOD Urine Urobilinogen 2.0 Urine Leukocyte Esterase TRACE Urine RBC 1 Urine WBC 4 Urine Squamous Epithelial 1 Cells Urine Amorphous Sediment RARE Urine Hyaline Casts 17 Urine Mucus FEW Microscopic Urinalysis Comment CATH-CULT NOT IND Test 03/26/16 03/26/16 03/27/16 18:17 23:45 04:41 Prothrombin Time 23.5 23.9 23.9 Prothromb Time International 2.1 2.1 2.1 Ratio Activated Partial 45.4 46.8 46.1 Thromboplast Time Lactic Acid Level 5.2 3.0 Total Bilirubin 9.1 9.2 9.4 Direct Bilirubin 7.0 7.4 Indirect Bilirubin 2.1 1.8 Aspartate Amino Transf 3120 3661 4038 (AST/SGOT) Alanine Aminotransferase 1226 1370 1543 (ALT/SGPT) Alkaline Phosphatase 438 411 436 Total Creatine Kinase 1251 1574 Creatine Kinase MB 33.6 23.3 Creatine Kinase MB % 2.7 1.5 Troponin I 0.82 0.96 Total Protein 4.9 4.7 4.8 Albumin 2.9 2.8 2.6 White Blood Count 10.1 Red Blood Count 4.22 Hemoglobin 13.1 Hematocrit 38.4 Mean Corpuscular Volume 91.0 Mean Corpuscular Hemoglobin 31.0 Mean Corpuscular Hemoglobin 34.1 Concent Red Cell Distribution Width 14.1 Platelet Count 65 Mean Platelet Volume 7.7 Neutrophils (%) (Auto) Lymphocytes (%) (Auto) Monocytes (%) (Auto) Eosinophils (%) (Auto) Basophils (%) (Auto) Neutrophils # (Auto) Lymphocytes # (Auto) Monocytes # (Auto) Eosinophils # (Auto) Basophils # (Auto) CBC Comment AUTO DIFF Differential Total Cells 100 Counted Neutrophils % (Manual) 78 Band Neutrophils % 14 Lymphocytes % 8 Neutrophils # (Manual) 9.3 Nucleated Red Blood Cells 2 Differential Comment FINAL DIFF MANUAL Platelet Estimate LOW Platelet Morphology Comment NORMAL Sodium Level 128 Potassium Level 4.4 Chloride Level 91 Carbon Dioxide Level 25.4 Anion Gap 12 Blood Urea Nitrogen 50 Creatinine 3.47 Estimat Glomerular Filtration 13 Rate Random Glucose 144 Calcium Level 8.6 Ammonia 77 Date/Time Procedure Status Source Growth 03/26/16 13:00 Urine Culture Received Urine Catheterized Urine Pending 03/26/16 11:03 Aerobic Blood Culture Received Blood Peripheral Pending 03/26/16 11:03 Anaerobic Blood Culture Received Blood Peripheral Pending Imaging Last Impressions Liver Ultrasound 03/26/16 0000 Signed Impressions: Service Date/Time: Saturday, March 26, 2016 14:42 - CONCLUSION: 1. Severe hepatomegaly. 2. Nonspecific gallbladder wall thickening. The gallbladder is not fully distended. Gallbladder wall thickening can be seen with hepatic disease. No gallstones are seen. Franco Dixon MD Chest X-Ray 03/26/16 0000 Signed Impressions: Service Date/Time: Saturday, March 26, 2016 08:48 - CONCLUSION: The right hilar mass and right lower lobe consolidation is again visualized. No other acute finding is identified. Franco Jha MD Abdomen X-Ray 03/26/16 0000 Signed Impressions: Service Date/Time: Saturday, March 26, 2016 16:23 - CONCLUSION: Massive enlargement of the liver. Franco Dixon MD Cholangiopancreatography MRI 03/25/16 0000 Signed Impressions: Service Date/Time: Friday, March 25, 2016 18:22 - CONCLUSION: 1. Very prominent enlargement of the liver. 2. Significant biliary duct dilatation is not seen. 3. Mild amount of ascites. 4. Right lung mass. Franco Dixon MD Chest CT 03/24/16 1406 Signed Impressions: Service Date/Time: Thursday, March 24, 2016 14:01 - CONCLUSION: Large right perihilar mass with mediastinal osmani involvement. Calcified granuloma right lower lobe. No evidence of destructive bone lesions. Emanuel Gannon MD Abdomen/Pelvis CT 03/24/16 1129 Signed Impressions: Service Date/Time: Thursday, March 24, 2016 14:01 - CONCLUSION: 1. No evidence of metastatic disease. 2. Ascites and anasarca. 3. Hepatomegaly Jameson Maher MD Physical Exam HEENT: Normocephalic; atraumatic; + jaundice. CHEST: Resp. even/unlabored. Diminished bases CARDIAC: RRR ABDOMEN: Soft, nondistended,diffuse tenderness; significant hepatosplenomegaly ; bowel sounds are present in all four quadrants. EXTREMITIES: BLE edema. SKIN: Skin w/d, jaundice. [employer]: Pt lethargic, confused. (Kianna Israel) Assessment and Plan Plan ASSESSMENT: - Acute hepatic failure, unclear etiology. Pt has hx of ETOH abuse, none for 20 years and no known hx of liver cirrhosis or other liver dz. Abdomen/Pelvis CT (03/24/16)----> 1. No evidence of metastatic disease. 2. Ascites and anasarca. 3. Hepatomegaly. MRCP (03/25/16)---> 1. Very prominent enlargement of the liver. 2. Significant biliary duct dilatation is not seen. 3. Mild amount of ascites. 4. Right lung mass. Liver Ultrasound (03/26/16)----> 1. Severe hepatomegaly. 2. Nonspecific gallbladder wall thickening. The gallbladder is not fully distended. Gallbladder wall thickening can be seen with hepatic disease. No gallstones are seen. Hepatitis negative. Acetaminophen < 2.0. AFP 2.4. Pt takes lortab at home, unknown if she has taken any other OTC meds prior to admission. Will get liver workup---> ABBEY, AMA, ASMA, Ferritin, Iron Saturation, Ceruloplasmin, Alpha 1 Antitrypsin, EBV IgM, HSV igm. LJ level. Pt with worsening LFTs, Coag's. T. Bili 9.4, AST 4038, ALT 1543, Alk Phosph 436, Ammonia 77, Plt 65, PT 23.9, INR 2.1 , APTT 46.1. Will initiate acetylcysteine per protocol. Monitor labs q6h. Avoid hepatotoxins. Consult CM for tx to tertiary for evaluation liver transplant. ? Liver biopsy at time of lung bx. - Coagulopathy. Plt 65, PT 23.9, INR 2.1, APTT 46.1. - Hepatic encephalopathy. Ammonia 77. Lactulose. Will add Xifaxan. - Dark Gastric Secretions. Appears dark green in canister, questionable black residue in tubing. Add Protonix, monitor hh. - ARF, worsening. Creat 3.47, GFR 13. UOP decreasing. - Mediastinal mass. Pulmonology following. ? Lung biopsy by IR vs. Bronchoscopy. Diagnosis will be important, as if this is a malignancy, then she would likely not be a candidate for liver transplant. - Elevated troponin, per CCM - Hypoglycemia per CCM. PLAN: - NPO - NGT to [facility]. - Protonix 40mg IV BID - Add Xifaxan 550mg po BID - Cont. Lactulose - Initiate acetylcysteine IV per protocol 9,150mg over 1 hour 3,050mg over 4 hours 6,100mg over 16 hours - LJ level - ABBEY, ASMA, AMA - Ferritin, Iron Saturation - Ceruloplasmin, ALpha 1 antitrypsin - EBV, HSV IgM - LFT, PT/INR, Ammonia q6h - Consult CM for transfer to tertiary for transplant evaluation - Consider liver biopsy at time of lung biopsy - Supportive care - Further recommendations to follow based on results of above - Pt seen and examined by Dr. Chamberlain and myself and this note is written on his behalf (Kianna Israel) Physician Comments seen, examined agree with above discussed with tertiary center, not a candidate for transfer due to possibility of lung cancer -await pathology report possible liver biopsy today too-ordered fu serology] Mucomyst, supportive care (Gabriela Busby MD) Kianna Israel Mar 27, 2016 09:15 Gabriela Busby MD Mar 27, 2016 17:20
[2016-03-27] MEDS ORDERED: ACETYLCYSTEINE IV ONE ×6 (09:30→14:30)
[2016-03-27] MEDS ORDERED: DEXTROSE 5% IV ONE ×6 (09:30→14:30)
[2016-03-27] MEDS ORDERED: WATER IV ONE ×2 (09:30)
[2016-03-27] MEDS ORDERED: SODIUM CHLOR 0.9% 250 ML INJ 250 ML IV ONE (10:00)
[2016-03-27] MEDS: RIFAXIMIN 550 MG TAB PO SCH ×2 (10:23→21:00)
[2016-03-27] MEDS ORDERED: WATE IV ONE ×4 (10:30→14:30)
[2016-03-27 11:22] LABS: APTT (PATIENT) 42.4 SEC (24.3-30.1); INTERNATIONAL NORMALIZED RATIO 1.9 RATIO; PROTHROMBIN TIME - PATIENT 22.1 SEC (9.8-11.6)
--- NOTE | 2016-03-27 12:08 | HHI.FPPN ---
Subjective Remarks No acute events overnight. Tmax 99.1F over past 24 hours. BPs now ranging 90s- 110s/40s-60s. Urine output has significantly decreased, 350 mL documented over past 24 hours. She is unable to answer most questions due to her neurological status. Mumbles intermittently, not able to determine if she has any specific complaints. (Ephraim Red MD R1) Objective Vitals Vital Signs Date Time Temp Pulse Resp B/P Pulse Ox O2 Delivery O2 Flow Rate FiO2 03/27/16 08:38 93 Nasal Cannula 5.00 03/27/16 08:00 97.5 94 28 110/54 95 03/27/16 08:00 94 03/27/16 06:00 89 03/27/16 05:53 19 03/27/16 04:00 99.1 92 27 99/49 94 03/27/16 04:00 92 03/27/16 02:00 94 03/27/16 00:00 96 03/27/16 00:00 98.9 96 17 102/50 93 03/26/16 22:00 97 03/26/16 20:32 93 Nasal Cannula 5.00 03/26/16 20:00 97 03/26/16 20:00 98.6 97 19 102/50 93 03/26/16 16:00 98.7 101 32 105/52 95 03/26/16 12:00 97.9 93 26 94 I/O 03/26/16 03/26/16 03/26/16 03/27/16 03/27/16 03/27/16 07:00 15:00 23:00 07:00 15:00 23:00 Intake Total 120 ml 510 ml 409 ml 1054 ml Output Total 200 ml 50 ml 200 ml 100 ml Balance -80 ml 460 ml 209 ml 954 ml Intake Oral 120 ml 0 ml 0 ml IV Total 510 ml 409 ml 1054 ml Output Urine Total 200 ml 50 ml 150 ml 25 ml Stool Total 0 ml 0 ml Gastric Drainage Total 50 ml 75 ml (Ephraim Red MD R1) Result Diagram: 03/27/1644003/27/16440 Objective Remarks GENERAL: Lying in bed clearly confused. Intermittently yells out in pain but does not seem to be writhing in pain. EYES: Extraocular motions intact. Eyelids droopy. Scleral icterus evident. No injection or drainage. CARDIOVASCULAR: Regular rate and rhythm without murmurs, gallops, or rubs. RESPIRATORY: Decreased air movement bilaterally. No wheezes, rales, or rhonchi. GASTROINTESTINAL: Abdomen soft, tenderness to palpation of RUQ. Significant hepatomegaly. Seems to be guarding even though she is lethargic. MUSCULOSKELETAL: 2+ lower extremity edema. No calf tenderness. NEUROLOGICAL: Drowsy. Answers to name. Unable to state where she is or what year it is. Speech is mumbled, sometimes coherent. (Ephraim Red MD R1) A/P Assessment and Plan 65 year old female presented with RUQ abdominal pain. Admitted with transaminitis and severe abdominal pain. Critical Care has been consulted due to acute worsening of clinical status. Appreciate assistance Neuro: Began to have altered mental status on 03/26 acutely. Possibly due to hepatic encephalopathy, hypoglycemia -Acute increase in ammonia from <10 to 84, remains elevated today to 77 -Glucose of 29 treated with D50 -ABG obtained on 3L via NC, showing mild respiratory acidosis -Q1H neuro checks Medications: * Lactulose 30ml q6h * Rifaximin 550 mg po bid * Acetylcysteine IV per protocol as acetaminophen overdose may present with this picture however the suspicion of this is low * D10 @ 75 mL/hr. Bedside blood glucoses within appropriate range this morning 120-156 mg/dL * Hold long-acting sedating medications * Dilaudid 0.5 mg IVP q4h if necessary Cardiac: elevated troponins possibly due to decreased clearance, CK-MB within normal limits -There is acute elevations of troponins but without EKG changes and pt is unable to clearly pinpoint pain. Suspect elevation is due to TAMIKO -Cardiac telemetry -Echo: Hyperdynamic systolic function, ejection fraction estimated to be 70-75% , normal wall motion, no regional wall motion abnormalities. Abnormal left ventricular relaxation (grade I diastolic dysfunction). Mild MV regurgitation -BNP WNL Respiratory: Large right perihilar mass -ABG shows mild respiratory acidosis with pH of 7.31/PaCO2 45/HCO3 22/Pa02 91 -Pulmonary consulted: * bronchoscopy may be needed depending on further evaluation -Biopsy is needed to diagnose malignancy or to rule it out in order to proceed with next steps in regards to whether the patient would be a candidate for a liver transplant -Plan is to obtain CT-guided biopsy of lung mass as well as liver -Transfused 3 units of FFP before biopsies given her elevated PT/INR Imaging * CXR: Right hilar mass and right lower lobe consolidation. No other acute findings * Chest CT: Large right perihilar mass with mediastinal osmani involvement. Calcified granuloma right lower lobe GI: Fulminant hepatitis, markedly elevated LFTs, Elevated Bilirubin, hypoglycemia, ascites No clear etiology as patient does not have a history of recent alcohol or IV drug use. Does have a history of remote drug use but none within the last 15- 16 years. -Hepatitis panel negative -INR 2.1, continues to trend upward -Daily CMP and coags -Tylenol level < 2.0 however not obtained at admission GI consulted: * Not clear why the patient's liver function tests are elevated * AFP negative * Extensive laboratory workup per GI to include: serum antibodies, iron profile , EBV and HSV antibodies, [id number], ceruloplasmin, LJ Imaging: * MRCP: very prominent enlargement of the liver. No biliary duct dilation. Mild ascites. Right lung mass * Abdomen/Pelvis CT: No evidence of metastatic disease; ascites and anasarca, hepatomegaly * KUB significant only again for massive hepatomegaly ID: SBP?, sepsis? -Leukocytosis with no clear etiology. Downtrended today to 10.1 -Initial UA negative -Repeat UA and culture. Culture no growth after 24 hours -Blood cultures no growth after 1 day Medications: * Rocephin started due to possible concern of SBP on 03/25-03/26 * Vancomycin and Zosyn started for better coverage to include both sepsis and SBP (03/26- Renal: TAMIKO baseline <1.0 -Fluids currently at D10 at 75 mL/hr -Bunch catheter Monitor I's and O's -Creatinine continuing to increase to 3.47 today possibly due to type I hepatorenal syndrome Heme: Elevated INR, low platelets -SCDs -Transfused 3 units of FFP as above -Monitor platelets Electrolytes: continues to have hyponatremia, hypoglycemia resolved s/p D10 - continue to monitor BMPs - Q1H glucose checks DVT Prophylaxis - Bilateral SCDs - Hold chemical anticoagulation in the setting of coagulopathy GI Prophylaxis - Protonix 40 mg IV q24h sdw Dr. Alice Segura Discharge Planning Unclear timetable. (Ephraim Red MD R1) Assessment and Plan Attending note: Patient was seen and examined with the resident team. Case was reviewed and discussed with resident team. Physician agreed with the plan of care as discussed with me and documented in the resident note. (Martell Jenkins MD) Problem List: (1) Fulminant hepatitis Status: Acute (2) Hepatic encephalopathy Status: Acute (3) Acute kidney injury Status: Acute (4) Hilar mass Status: Acute (5) Ascites Status: Acute (6) Transaminitis Status: Acute (7) Abdominal pain Status: Acute (8) Hyponatremia Status: Acute (Ephraim Red MD R1) Problem Qualifiers (1) Abdominal pain: Qualified Code: R10.30 - Lower abdominal pain Ephraim Red MD R1 Mar 27, 2016 12:08 Martell Jenkins MD Mar 28, 2016 13:27
[2016-03-27] MEDS: SODIUM CHLORIDE 23.4% INJ 154 MEQ in DEXTROSE 10% INJ 1,000 ML IV SCH (12:51)
[2016-03-27] MEDS ORDERED: LIDOCAINE 1%/EPINEPHrine 1:100,000 SOLN 20 ML VIAL ONE (14:45)
[2016-03-27] MEDS ORDERED: MIDAZOLAM HCL 5 MG/5 ML VIAL ONE (14:46)
[2016-03-27] MEDS ORDERED: fentaNYL CITRATE 250 MCG/5 ML AMP ONE (14:46)
[2016-03-27] MEDS ORDERED: THROMBIN (TOPICAL) 5,000 UNIT VIAL ONE (15:53)
[2016-03-27] MEDS ORDERED: LIDOCAINE HCL 1% PF 30 ML VIAL ONE (16:06)
--- NOTE | 2016-03-27 16:18 | HHI.PR ---
Subjective Subjective Notes Resting in bed Moans in pain Objective Vitals/I&O Vital Signs Date Time Temp Pulse Resp B/P Pulse Ox O2 Delivery O2 Flow Rate FiO2 03/27/16 14:00 98 03/27/16 12:00 98.4 28 102/49 95 03/27/16 08:38 Nasal Cannula 5.00 Labs Laboratory Tests Test 03/26/16 03/26/16 03/27/16 03/27/16 18:17 23:45 04:41 09:40 Prothrombin Time 23.5 23.9 23.9 22.1 Prothromb Time International 2.1 2.1 2.1 1.9 Ratio Activated Partial 45.4 46.8 46.1 42.4 Thromboplast Time Lactic Acid Level 5.2 3.0 Total Bilirubin 9.1 9.2 9.4 Direct Bilirubin 7.0 7.4 Indirect Bilirubin 2.1 1.8 Aspartate Amino Transf 3120 3661 4038 (AST/SGOT) Alanine Aminotransferase 1226 1370 1543 (ALT/SGPT) Alkaline Phosphatase 438 411 436 Total Creatine Kinase 1251 1574 Creatine Kinase MB 33.6 23.3 Creatine Kinase MB % 2.7 1.5 Troponin I 0.82 0.96 Total Protein 4.9 4.7 4.8 Albumin 2.9 2.8 2.6 White Blood Count 10.1 Red Blood Count 4.22 Hemoglobin 13.1 Hematocrit 38.4 Mean Corpuscular Volume 91.0 Mean Corpuscular Hemoglobin 31.0 Mean Corpuscular Hemoglobin 34.1 Concent Red Cell Distribution Width 14.1 Platelet Count 65 Mean Platelet Volume 7.7 Neutrophils (%) (Auto) Lymphocytes (%) (Auto) Monocytes (%) (Auto) Eosinophils (%) (Auto) Basophils (%) (Auto) Neutrophils # (Auto) Lymphocytes # (Auto) Monocytes # (Auto) Eosinophils # (Auto) Basophils # (Auto) CBC Comment AUTO DIFF Differential Total Cells 100 Counted Neutrophils % (Manual) 78 Band Neutrophils % 14 Lymphocytes % 8 Neutrophils # (Manual) 9.3 Nucleated Red Blood Cells 2 Differential Comment FINAL DIFF MANUAL Platelet Estimate LOW Platelet Morphology Comment NORMAL Sodium Level 128 Potassium Level 4.4 Chloride Level 91 Carbon Dioxide Level 25.4 Anion Gap 12 Blood Urea Nitrogen 50 Creatinine 3.47 Estimat Glomerular Filtration 13 Rate Random Glucose 144 Calcium Level 8.6 Ammonia 77 Test 03/27/16 03/27/16 10:40 10:43 Blood Type O NEGATIVE O NEGATIVE Blood Bank Comment Date/Time Procedure Status Source Growth 03/26/16 13:00 Urine Culture - Preliminary Resulted Urine Catheterized Urine NO GROWTH IN 24 HOURS. 03/26/16 11:03 Aerobic Blood Culture - Preliminary Resulted Blood Peripheral NO GROWTH IN 1 DAY 03/26/16 11:03 Anaerobic Blood Culture - Preliminary Resulted Blood Peripheral NO GROWTH IN 1 DAY Cardiovascular: Regular Lungs: Clear Abdomen: Other (diffuse abdominal pain throughout abdomen with palpation ) Extremities: No edema Narrative Exam Of note: Patient is in pain anywhere I touch (arm; face; abdomen) A/P Assessment and Plan 65 year old female with abdominal pain in multiorgan system failure -No acute surgical concerns at this time -Spoke with Dr. Segura -GS will sign off I ATTEST AND CERTIFY THAT I PERSONALLY WENT IN THE PATIENT'S ROOM AND EXAMINED THEM. I REVIEWED THE EMR WITH THE PROJECT MANAGER [employer] AND ADVISED HER ON THE CARE PLAN. SHE DOCUMENTED THE VISIT AND ENTERED THE ORDERS IN THE EMR UNDER MY DIRECTION. BALDO YANG MD [facility] Allyson OlearyP Mar 27, 2016 16:18 Baldo Yang MD Apr 05, 2016 11:41
[2016-03-27] MEDS ORDERED: PIPERACIL-TAZO 2.25 GM PREMIX 50 ML IV SCH (17:00)
--- NOTE | 2016-03-27 17:06 | RADRPT ---
EXAM DATE/TIME: 03/27/2016 15:43 [facility] COMPARISON: No previous studies available for comparison. INDICATIONS : Right hilar mass. SEDATION TIME: 45 minutes BIOPSY SITE: Right lung MEDICATION(S): 1.) 3 mg midazolam (Versed) IV 2.) 150 mcg fentanyl (Sublimaze) RN(s): Clemente Anguiano RN DEVICE(S): 1.) 18 gauge Conklin blunt needle 2.) 20 gauge Temno core biopsy needle MEDICAL HISTORY : Chronic obstructive pulmonary disease. Gastroesophageal reflux disease. SURGICAL HISTORY : Hysterectomy. ENCOUNTER: Initial ACUITY: 1 day PAIN SCORE: Non-responsive LOCATION: Bilateral chest A total of three core specimen(s) were obtained and sent to the laboratory for pathologic evaluation. PROCEDURE: 1. CT guided lungright biopsy. 2. Conscious sedation with continuous EKG and oximetry monitoring. 3. EKG and oximetry remained stable throughout the procedure. Prior to the procedure informed consent was obtained. Any appropriate prior imaging studies were rev iewed. The site was prepped in a sterile fashion. Full sterile technique was used, including cap, mask, aurelio rile gloves and gown and a large sterile sheet. Hand hygiene and 2% chlorhexidine and/or betadine/al cohol prep was utilized per protocol for cutaneous antisepsis. The skin and subcutaneous tissues wer e infiltrated with local anesthetic solution. After receiving fresh frozen plasma to correct coagulopathy an 18 gauge blunt needle was placed down to the mass in the right hilum 3 cores were obtained. Tract was embolized with Gelfoam and thrombin. Follow-up CT scan reveals no pneumothorax. Conscious sedation was performed with the prescribed dosages and duration as above. The patient rob ated the procedure well and there were no complications. EKG and oximetry remained stable throughout the procedure. The patient was sent to Radiology Outpatient Unit in stable condition. CONCLUSION: Uncomplicated CT guided biopsy. Track was embolized with Gelfoam and thrombin. Addi Jackman MD FACR on March 27, 2016 at 17:03 Board Certified Radiologist. This report was verified electronically.
--- NOTE | 2016-03-27 17:10 | RADRPT ---
EXAM DATE/TIME: 03/27/2016 15:43 [facility] COMPARISON: No previous studies available for comparison. INDICATIONS : Non-functioning liver. SEDATION TIME: 45 minutes BIOPSY SITE: liver MEDICATION(S): 1.) 3 mg midazolam (Versed) IV 2.) 150 mcg fentanyl (Sublimaze) DEVICE(S): 1.) 18 gauge BioPince needle MEDICAL HISTORY : Chronic obstructive pulmonary disease. Gastroesophageal reflux disease. SURGICAL HISTORY : Hysterectomy. ENCOUNTER: Initial ACUITY: 1 day PAIN SCORE: Non-responsive LOCATION: Bilateral abdomen A total of one core specimen(s) were obtained and sent to the laboratory for pathologic evaluation. PROCEDURE: 1. CT guided liver biopsy. 2. Conscious sedation with continuous EKG and oximetry monitoring. 3. EKG and oximetry remained stable throughout the procedure. Neuropathy was corrected with fresh frozen plasma. The site was prepped in a sterile fashion. Full sterile technique was used, including cap, mask, aurelio rile gloves and gown and a large sterile sheet. Hand hygiene and 2% chlorhexidine and/or betadine/al cohol prep was utilized per protocol for cutaneous antisepsis. The skin and subcutaneous tissues wer e infiltrated with local anesthetic solution. Under CT guidance left liver lobe was biopsied tract embolized with Gelfoam and thrombin. Follow-up CT scan reveals no hemorrhage. The patient tolerated the procedure well and there were no complications. The patient was returned to the Radiology Outpatient Unit in stable condition. CONCLUSION: Uncomplicated CT guided biopsy. Tract was embolized with Gelfoam and thrombin. Addi Jackman MD FACR on March 27, 2016 at 17:05 Board Certified Radiologist. This report was verified electronically.
--- NOTE | 2016-03-27 17:20 | EKG ---
Date Performed: 03/26/2016 Time Performed: 20:10:35 PTAGE: 65 years EKG: Sinus rhythm WITH SHORT [place] INTERVAL POSSIBLE LEFT ATRIAL ENLARGEMENT MODERATE T-WAVE ABNORMALITY, CONSIDER ANTERI OR ISCHEMIA Compared to prior tracing no significant change ABNORMAL ECG PREVIOUS TRACING : 03/26/2016 09.16 DOCTOR: Caitlin To Interpretating Date/Time 03/27/2016 17:18:27
[2016-03-27 17:50] LABS: APTT (PATIENT) 42.2 SEC (24.3-30.1); INTERNATIONAL NORMALIZED RATIO 1.7 RATIO; PROTHROMBIN TIME - PATIENT 19.2 SEC (9.8-11.6)
[2016-03-27 18:23] LABS: ALKALINE PHOSPHATASE 395 U/L (45-117); ALT (GPT) 1215 U/L (10-53); AST (GOT) 3549 U/L (15-37); FERRITIN 14128 NG/ML (8-252); INDIRECT BILIRUBIN 1.9 MG/DL (0.0-0.8); TOTAL BILIRUBIN ADULT 8.5 MG/DL (0.2-1.0); TRANSFERRIN IRON PROFILE 114 MG/DL (200-360)
[2016-03-27] MEDS ORDERED: NOREPINEPHRINE-DEXTROSE DRIP 250 ML IV ONE ×2 (19:54→21:22)
[2016-03-27] MEDS ORDERED: HYDROCORTISONE SOD SUCCINATE 100 MG VIAL ONE (20:06)
[2016-03-27] MEDS ORDERED: TERBUTALINE INJ 1 MG/ML AMP SQ PRN (20:15)
[2016-03-27] MEDS ORDERED: DEXT 5%-NACL 0.9% 1000 ML INJ 1,000 ML IV SCH (20:15)
[2016-03-27] MEDS ORDERED: PHENYLEPHRINE 40 MG/D5W 496 ML ADMIX IV SCH ×2 (20:15)
[2016-03-27] MEDS ORDERED: EPINEPHrine HCL (1:10,000) 1 MG/10 ML SYRINGE ONE (20:31)
[2016-03-27] MEDS: DOCUSATE SODIUM 50 MG/SENNA 8.6 MG TAB PO SCH (21:00)
--- NOTE | 2016-03-27 21:05 | PD.PROCEDR ---
Central Line Procedure REASON FOR PROCEDURE Central venous access PROCEDURE PERFORMED Central line placement: Right femoral central line placement CONSENT Procedure was performed emergently for hemodynamic monitoring as patient was hypotensive and on multiple pressors. ANESTHESIA Local injection of 1% Lidocaine DESCRIPTION OF THE PROCEDURE The patient was placed in supine, mild Trendelenburg position. The area was exposed and cleansed with ChloraPrep, times two. Large sterile drape was used to cover the patient, with the site exposed, under sterile conditions including cap, face mask, sterile gown, and sterile gloves. On single attempt, the introducer needle was inserted with negative pressure in syringe and venous flash was obtained. The guide wire was then advanced without any restriction and the needle was removed. The dilator was used without any complications. Using Seldinger technique the catheter was advanced over the guide wire to a depth of 20 centimeters. The guide wire was removed. All ports were aspirated with dark venous blood return and flushed easily with sterile saline. All ports were capped. Antibiotic disc was placed around central line at puncture site. The central line was secured to the skin with two interrupted 2.0 silk sutures. The area was bandaged with sterile see-through central line bandage. COMPLICATIONS: No apparent complications ESTIMATED BLOOD LOSS: Less than 1 cc. Mikayla Joyce MD Mar 27, 2016 21:05
[2016-03-27 21:06] LABS: AUTOMATED NEUTROPHIL # 5.1 TH/MM3 (1.8-7.7); BASOPHIL % 0.3 % (0.0-2.0); EOSINOPHIL % 0.6 % (0.0-4.0); LYMPH % 19.9 % (9.0-44.0); LYMPHOCYTE # 1.3 TH/MM3 (1.0-4.8); MEAN CELL VOLUME 94.9 FL (80.0-100.0); MEAN CORPUSCULAR HEMOGLOBIN 31.4 PG (27.0-34.0); MEAN CORPUSCULAR HGB CONC 33.1 % (32.0-36.0); MONO % 3.5 % (0.0-8.0); NEUT % 75.7 % (16.0-70.0); PLATELET COUNT 49 TH/MM3 (150-450); RED BLOOD COUNT 2.14 MIL/MM3 (4.00-5.30); RED CELL DISTRIBUTION WIDTH 14.9 % (11.6-17.2); WHITE BLOOD COUNT 6.7 TH/MM3 (4.0-11.0)
[2016-03-27 21:07] LABS: HEMO FLAGS AUTO DIFF
[2016-03-27 21:08] LABS: HEMATOCRIT 20.3 % (35.0-46.0)
[2016-03-27 21:23] LABS: INTERNATIONAL NORMALIZED RATIO 2.1 RATIO; PROTHROMBIN TIME - PATIENT 23.4 SEC (9.8-11.6)
[2016-03-27 21:28] LABS: APTT (PATIENT) 97.3 SEC (24.3-30.1)
[2016-03-27] MEDS ORDERED: LIDOCAINE HCL 1% 50 ML VIAL ONE (21:31)
--- NOTE | 2016-03-27 21:35 | HHI.CCPN ---
Subjective Remarks/Hospital Course Hospital Course: This is a 65-year-old female who originally presented on 03/24 with complaints of worsening right upper quadrant abdominal pain for 3-4 weeks. This was associated with nausea. She states that this began after the use of ibuprofen or from patch. She had poor by mouth intake for the last few weeks. She also stated she had constipation and had not had a bowel movement for 2 weeks. She denied fever or chills at that time. Denied having any prior liver disease. She was admitted for workup of acute liver dysfunction. This morning, the patient was much less alert and oriented. She was mildly hypoxic requiring increasing oxygen by nasal cannula. A rapid response was called and she was transferred to the ICU. Critical care medicine was consulted to assist in managing her acute altered mental status and worsening acute liver failure. Of note her LFTs demonstrate rising transaminitis and worsening acute liver failure. Her creatinine has significantly increased over 2 this morning. She is in acute kidney injury, acute liver failure, she also has evidence of mildly elevated troponin of 0.06 suggestive of type II and STEMI /demand ischemia. She is in multiorgan system dysfunction. She also has significant right upper quadrant pain and is guarding to me. She has a rising leukocytosis to 17,000. In addition to all this, she had bedside serum glucose of 29 which is treated with D50 and started on dextrose infusion. She is significantly altered on my exam and only moaning in pain. She is unable to provide any additional history. Subjective: 03/27: I saw and examined the patient around 07:30 this AM. She is persistently encephalopathic, though still protecting her airway and does not require intubation at this time. I discussed her care with GI, family medicine team, interventional radiology. We all feel that she needs emergent work-up of lung mass because if this is negative for malignancy, then she would be a good candidate for emergent liver transplant work-up. LFTs continue to rise. now significant TAMIKO and likely type 1 HRS. Objective Vital Signs Date Time Temp Pulse Resp B/P Pulse Ox O2 Delivery O2 Flow Rate FiO2 03/27/16 19:58 99 15.00 100 03/27/16 18:00 96 03/27/16 16:00 98.6 16 105/62 03/27/16 08:38 Nasal Cannula Intake and Output 03/26/16 03/26/16 03/27/16 08:00 16:00 00:00 Intake Total 120 ml 510 ml 409 ml Output Total 200 ml 50 ml 200 ml Balance -80 ml 460 ml 209 ml Result Diagram: 03/27/16203903/27/16 0441 Imaging 03/25 CT chest and pelvis: Right hilar mass suspicious for malignancy. Significantly enlarged liver. 03/25 MRCP: Enlarged liver without signs of obstruction Objective Remarks GENERAL: Middle-aged female, lying in bed in severe distress from abdominal pain. Altered, near obtunded. Only moaning HEENT: Pupils equal, round, reactive, conjugate. Positive scleral icterus. Mucous membranes are dry. NECK: Take is midline. There is no JVD. CHEST: Equal chest rise. Clear to auscultation. CARDIOVASCULAR: Tachycardic rate, regular rhythm. No appreciable murmurs. ABDOMEN: Significant tender to palpation, even light palpation. Cannot localize due to altered mental status. Nondistended. Voluntary guarding. MUSCULOSKELETAL: No peripheral edema. Distal pulses 2+. NEUROLOGICAL: Significantly altered. RASS -2. Only moans in pain. Does not follow commands. 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 Her lung mass is concerning for malignancy. If this turns out to be malignant, she would not be a transplant candidate, and the combination of the two really is a non-survivable insult. If this isn't malignant, we will work towards getting her to a transplant center for further work-up, as I do not know of an absolute contra-indication for orthotopic liver transplantation at this time. Plan today for active infusion of FFP given coagulopathy to mitigate risk of bleeding and then pursue CT guided liver and lung biopsies as this is the only next step in giving her a chance at liver transplant. if this lung mass is malignant, then she has no chance of meaningful survival with lung CA and fulminant liver failure with type 1 HRS. I have discussed the case with Dr. Jackman, and he agrees and will proceed with biopsies. We all understand that biopsies are high risk in this patient, but it is our only shot at giving her a chance for a better outcome here. Plan by systems: Neurologic: Hepatic encephalopathy Severe liver capsular pain Lactulose every 6 Neuro every hour neuro checks Hold long-acting sedating meds Dilaudid 0.5 mg IV every 4 hours when necessary Respiratory: Atelectasis Hypoxia Right hilar mass Wean oxygen by nasal cannula for goal SPO2 greater than 90% Incentive spirometer to bedside Nebs every [address] Castro following. -- plan for CT guided lung biopsy today with IR. Cardiovascular: Sinus tachycardia Likely a combination of pain and acute fulminant liver failure Renal: Acute kidney injury Possible type I hepatorenal syndrome Possibly secondary to fulminant liver failure. -- Strict I/Os Continue Bunch --does not appear to be clinically hypovolemic. FEN/GI: Intravascular volume overload Acute fulminant liver failure Acute protein calorie malnutritionmild q6 hour LFTs and coags Nothing by mouth hepatic dopplers 03/26: normal flow. MRCP without evidence of obstruction CT abdomen and pelvis without obvious lesions Gastroenterology on board. --will send work-up for hemachromatosis and All's --will start empiric mucomyst in case of chronic tylenol ingestion she did not admit to. -- will start discussions with transplant center regarding possible transfer in the near future if lung biopsy is benign. -- CT guided liver biopsy Heme/ID: Coagulopathy secondary liver disease Leukocytosis Trend coags every 6 No active bleeding. --will give 2 FFP now and 1 FFP infusing during procedure. Daily CBC Hill culture. Empiric coverage with vancomycin and Zosyn will have IR evaluate for possible diagnostic tap of ascites while doing liver biopsy. Endocrine: Hypoglycemia secondary to acute fulminant liver failure D10 at 50 cc an hour Every hour glucose checks Prophylaxis: GI Prophylaxis Protonix 40 mg IV daily 24 hours DVT Prophylaxis -- SCDs Hold DVT prophylaxis in the setting of coagulopathy Lines: Peripheral IVs. Bunch Dispo: remain in the ICU. She remains critically ill. We all agree as a healthcare team that if she has a malignancy and fulminant liver failure, her prognosis is poor and we should get palliative on board. If her biopsy is negative for malignancy, we will work towards referral to transplant center. This patient remains critically ill with one or more organ systems which are or may become a threat to life. I have spent in excess of 82 minutes discontinuously in the care and management of this patient. This time is exclusive of procedures, and includes, but is not limited to, evaluation of the patient, review of the medical record, discussions with family, consultants, nursing staff, or respiratory therapy, and documentation in the medical record. Angel Segura MD Mar 27, 2016 21:35
--- NOTE | 2016-03-27 21:35 | RADRPT ---
EXAM DATE/TIME: 03/27/2016 20:10 [facility] COMPARISON: CHEST SINGLE AP, March 26, 2016, 8:48. INDICATIONS : Post intubation. MEDICAL HISTORY : Chronic obstructive pulmonary disease. Gastroesophageal reflux disease. SURGICAL HISTORY : Hysterectomy. ENCOUNTER: Subsequent ACUITY: 1 day PAIN SCORE: Non-responsive. LOCATION: Bilateral chest FINDINGS: Compared with the exam there is development of a large right-sided pleural effusion, possibly a hemot horax. CT pending. Endotracheal tube tip in satisfactory position. Patchy airspace disease in the lef t lung. No pneumothorax identified. CONCLUSION: 1. Development of a large right-sided hemothorax or pleural effusion compared with March 26, with n ear-complete opacification of the right hemithorax. Patient is status post recent right lung biopsy. Patchy airspace disease left lung. Endotracheal tube and nasogastric tube in satisfactory position. CT pending. Maulik Randhawa MD on March 27, 2016 at 21:32 Board Certified Radiologist. This report was verified electronically.
[2016-03-27 21:38] LABS: BANDS 10 % (0-6); CORRECTED NUCLEATED RBC 6 /100 WBC (0-0); MYELOCYTES 1 % (0-0); NEUTROPHIL # MANUAL DIFF 5.3 TH/MM3 (1.8-7.7); PLATELET ESTIMATE SMEAR LOW (NORMAL); PLATELET MORPHOLOGY NORMAL (NORMAL); POLYS (SEG NEUTROPHILS) 68 % (16-70); SCAN/DIFF FINAL DIFF MANUAL; WBC DIFF SAMPLE 100
[2016-03-27 21:43] LABS: ALKALINE PHOSPHATASE 283 U/L (45-117); ALT (GPT) 819 U/L (10-53); ANION GAP 19 MEQ/L (5-15); AST (GOT) 2421 U/L (15-37); BICARBONATE 19.7 MEQ/L (21.0-32.0); BLOOD UREA NITROGEN 57 MG/DL (7-18); CHLORIDE 96 MEQ/L (98-107); GLOMERULAR FILTRATION RATE 9 ML/MIN (>89); POTASSIUM 5.7 MEQ/L (3.5-5.1); SODIUM (NA) 135 MEQ/L (136-145); TOTAL BILIRUBIN ADULT 5.8 MG/DL (0.2-1.0)
[2016-03-27] MEDS ORDERED: PHYTONADIONE 10 MG/D5W 50 ML IV ONE ×2 (21:45)
[2016-03-27] MEDS ORDERED: PHENYLEPHRINE HCL 160 MG/D5W 484 ML ADMIX IV SCH ×2 (21:45)
[2016-03-27] MEDS ORDERED: NOREPINEPHRINE 16 MG/D5W 250 ML IV SCH ×2 (21:45)
[2016-03-27] MEDS ORDERED: HYDROCORTISONE SOD SUCCINATE 100 MG VIAL IV PUSH SCH (22:00)
[2016-03-27] MEDS ORDERED: RESP: ALBUTEROL 2.5 MG/IPRATROPIUM 0.5 MG NEB (SCH) NEB (22:00)
--- NOTE | 2016-03-27 22:02 | EKG ---
Date Performed: 03/25/2016 Time Performed: 07:05:20 PTAGE: 65 years EKG: Sinus rhythm WITH SHORT [place] INTERVAL BORDERLINE ECG PREVIOUS TRACING : 03/24/2016 11.44 Compared to prior tracing no significant change DOCTOR: Bong Shah Interpretating Date/Time 03/27/2016 22:01:35
[2016-03-27] MEDS ORDERED: SODIUM POLYSTYRENE SULFONATE SUSP 15 GM/60 ML CUP PO ONE (22:30)
[2016-03-27] MEDS ORDERED: SODIUM BICARBONATE 8.4% INJ 50 MEQ/50 ML SYR IV PUSH ONE (22:30)
[2016-03-27 22:40] LABS: BLOOD GAS BASE EXCESS -17.5 mmol/L (-2-2); BLOOD GAS CARBOXYHEMOGLOBIN 0.8 % (0-4); BLOOD GAS HCO3 11 mmol/L (22-26); BLOOD GAS METHEMOGLOBIN 1.3 % (0-2); BLOOD GAS O2 HGB SATURATION 97 % (90-100); BLOOD GAS OXYGEN CONTENT 7.9 Vol % (12.0-20.0); BLOOD GAS PCO2 45 mmHg (38-42); BLOOD GAS PO2 233 mmHg (61-120); BLOOD GAS TOTAL HGB 5.3 G/DL (12.0-16.0); CRITICAL VALUE YES; DRAW SITE LT FEMORAL; FIO2 100 %; NUMBER OF ARTERIAL PUNCTURES 1; OXYGEN DEVICE VENTILATOR; TEMP CORR TO 98.6; VENT SETTINGS AC14/400/5PEEP
[2016-03-27 22:41] LABS: STAT NO
[2016-03-27] MEDS ORDERED: CALCIUM GLUCONATE INJ 1 GM in SODIUM CHLORIDE 0.9% INJ 100 ML IV ONE (23:00)
[2016-03-27] MEDS ORDERED: VASOPRESSIN INJ 40 UNITS in DEXTROSE 5% IN WATER 100ML INJ 98 ML IV SCH ×2 (23:14)
[2016-03-27] MEDS ORDERED: VASOPRESSIN INJ 20 UNITS/ML VIAL ONE (23:15)
[2016-03-27] MEDS ORDERED: SODIUM CHLORIDE 0.9% IV ONE (23:30)
[2016-03-27] MEDS ORDERED: DESMOPRESSIN IV ONE (23:30)
--- NOTE | 2016-03-27 23:33 | RADRPT ---
EXAM DATE/TIME: 03/27/2016 22:58 [facility] COMPARISON: CHEST SINGLE AP, March 27, 2016, 20:10. INDICATIONS : Post chest tube placement. MEDICAL HISTORY : Chronic obstructive pulmonary disease. Gastroesophageal reflux disease. SURGICAL HISTORY : Hysterectomy. ENCOUNTER: Subsequent ACUITY: 1 day PAIN SCORE: Non-responsive. LOCATION: Bilateral chest FINDINGS: A right chest tube has been placed. There is no evidence of pneumothorax. There has been reduction in the previously noted right effusion. The left lung remains clear and well-aerated. No left-sided eff usion. Chronic interstitial changes are seen throughout the left lung. The ET tube and NG tube are in place. CONCLUSION: 1. Status post placement right chest tube. 2. No pneumothorax. Fran Rocha MD on March 27, 2016 at 23:30 Board Certified Radiologist. This report was verified electronically.
--- NOTE | 2016-03-27 23:53 | EKG ---
Date Performed: 03/24/2016 Time Performed: 11:44:24 PTAGE: 65 years EKG: Sinus rhythm WITH SHORT DC INTERVAL POSSIBLE RIGHT ATRIAL ENLARGEMENT POSSIBLE LEFT ATRIAL ENLARGEMENT BORDERLINE ECG PREVIOUS TRACING : 10/13/1994 19.54 DOCTOR: Bong Shah Interpretating Date/Time 03/27/2016 23:52:46
[2016-03-28] VITALS: BP 120/51; PULSE 110; PULSE 122; RESP 23; O2SAT 63
[2016-03-28 00:15] VITALS: O2SAT 100
[2016-03-28 01:45] VITALS: O2SAT 0
[2016-03-28 02:13] LABS: REVIEW FLAG FINAL
[2016-03-28 02:17] LABS: HEMATOCRIT 11.8 % (35.0-46.0)
[2016-03-28 02:27] LABS: INTERNATIONAL NORMALIZED RATIO 1.8 RATIO; PROTHROMBIN TIME - PATIENT 20.4 SEC (9.8-11.6)
[2016-03-28 02:29] LABS: APTT (PATIENT) GREATER THAN 153.4 SEC (24.3-30.1)
[2016-03-28 02:49] LABS: BICARBONATE 12.3 MEQ/L (21.0-32.0); POTASSIUM 5.1 MEQ/L (3.5-5.1)
[2016-03-28 02:50] LABS: POTASSIUM 4.5 MEQ/L (3.5-5.1)
[2016-03-28 02:54] LABS: INDIRECT BILIRUBIN 0.5 MG/DL (0.0-0.8); TOTAL BILIRUBIN ADULT 1.6 MG/DL (0.2-1.0)
[2016-03-28 03:05] LABS: CALCIUM-PROTEIN CORRECTED 8.3 MG/DL (8.5-10.1)
[2016-03-28] MEDS: HYDROmorphone HCL PF 1 MG/ML VIAL IV PUSH PRN (03:10)
[2016-03-28 03:47] VITALS: O2SAT 84
[2016-03-28 04:00] VITALS: BP 107/71; PULSE 101; RESP 20
--- NOTE | 2016-03-28 06:36 | HHI.FPPN ---
Objective Vitals Vital Signs Date Time Temp Pulse Resp B/P Pulse Ox O2 Delivery O2 Flow Rate FiO2 03/28/16 04:00 101 20 107/71 03/28/16 03:47 84 100 03/28/16 01:45 0 100 03/28/16 00:15 100 80 03/28/16 00:00 110 03/28/16 00:00 122 23 120/51 63 03/27/16 21:49 100 100 03/27/16 20:00 100 03/27/16 20:00 71 16 84/58 89 03/27/16 19:58 99 15.00 100 03/27/16 18:00 96 03/27/16 16:00 99 03/27/16 16:00 98.6 96 16 105/62 100 03/27/16 14:00 98 03/27/16 12:00 102 03/27/16 12:00 98.4 94 28 102/49 95 03/27/16 10:00 105 03/27/16 08:38 93 Nasal Cannula 5.00 03/27/16 08:00 97.5 94 28 110/54 95 03/27/16 08:00 94 I/O 03/27/16 03/27/16 03/27/16 03/28/16 03/28/16 03/28/16 07:00 15:00 23:00 07:00 15:00 23:00 Intake Total 1054 ml 640 ml 0 ml Output Total 100 ml 120 ml 0 ml Balance 954 ml 520 ml 0 ml Intake Oral 0 ml 0 ml 0 ml IV Total 1054 ml 640 ml Output Urine Total 25 ml 120 ml 0 ml Stool Total 0 ml 0 ml Gastric Drainage Total 75 ml Result Diagram: 03/28/164 03/28/16 0154 Objective Remarks GENERAL: Lying in bed clearly confused. Intermittently yells out in pain but does not seem to be writhing in pain. EYES: Extraocular motions intact. Eyelids droopy. Scleral icterus evident. No injection or drainage. CARDIOVASCULAR: Regular rate and rhythm without murmurs, gallops, or rubs. RESPIRATORY: Decreased air movement bilaterally. No wheezes, rales, or rhonchi. GASTROINTESTINAL: Abdomen soft, tenderness to palpation of RUQ. Significant hepatomegaly. Seems to be guarding even though she is lethargic. MUSCULOSKELETAL: 2+ lower extremity edema. No calf tenderness. NEUROLOGICAL: Drowsy. Answers to name. Unable to state where she is or what year it is. Speech is mumbled, sometimes coherent. A/P Assessment and Plan 65 year old female presented with RUQ abdominal pain. Admitted with transaminitis and severe abdominal pain. Critical Care has been consulted due to acute worsening of clinical status. Appreciate assistance Neuro: Began to have altered mental status on 03/26 acutely. Possibly due to hepatic encephalopathy, hypoglycemia -Acute increase in ammonia from <10 to 84, remains elevated today to 77 -Glucose of 29 treated with D50 -ABG obtained on 3L via NC, showing mild respiratory acidosis -Q1H neuro checks Medications: * Lactulose 30ml q6h * Rifaximin 550 mg po bid * Acetylcysteine IV per protocol as acetaminophen overdose may present with this picture however the suspicion of this is low * D10 @ 75 mL/hr. Bedside blood glucoses within appropriate range this morning 120-156 mg/dL * Hold long-acting sedating medications * Dilaudid 0.5 mg IVP q4h if necessary Cardiac: elevated troponins possibly due to decreased clearance, CK-MB within normal limits -There is acute elevations of troponins but without EKG changes and pt is unable to clearly pinpoint pain. Suspect elevation is due to TAMIKO -Cardiac telemetry -Echo: Hyperdynamic systolic function, ejection fraction estimated to be 70-75% , normal wall motion, no regional wall motion abnormalities. Abnormal left ventricular relaxation (grade I diastolic dysfunction). Mild MV regurgitation -BNP WNL Respiratory: Large right perihilar mass -ABG shows mild respiratory acidosis with pH of 7.31/PaCO2 45/HCO3 22/Pa02 91 -Pulmonary consulted: * bronchoscopy may be needed depending on further evaluation -Biopsy is needed to diagnose malignancy or to rule it out in order to proceed with next steps in regards to whether the patient would be a candidate for a liver transplant -Plan is to obtain CT-guided biopsy of lung mass as well as liver -Transfused 3 units of FFP before biopsies given her elevated PT/INR Imaging * CXR: Right hilar mass and right lower lobe consolidation. No other acute findings * Chest CT: Large right perihilar mass with mediastinal osmani involvement. Calcified granuloma right lower lobe GI: Fulminant hepatitis, markedly elevated LFTs, Elevated Bilirubin, hypoglycemia, ascites No clear etiology as patient does not have a history of recent alcohol or IV drug use. Does have a history of remote drug use but none within the last 15- 16 years. -Hepatitis panel negative -INR 2.1, continues to trend upward -Daily CMP and coags -Tylenol level < 2.0 however not obtained at admission GI consulted: * Not clear why the patient's liver function tests are elevated * AFP negative * Extensive laboratory workup per GI to include: serum antibodies, iron profile , EBV and HSV antibodies, [id number], ceruloplasmin, LJ Imaging: * MRCP: very prominent enlargement of the liver. No biliary duct dilation. Mild ascites. Right lung mass * Abdomen/Pelvis CT: No evidence of metastatic disease; ascites and anasarca, hepatomegaly * KUB significant only again for massive hepatomegaly ID: SBP?, sepsis? -Leukocytosis with no clear etiology. Downtrended today to 10.1 -Initial UA negative -Repeat UA and culture. Culture no growth after 24 hours -Blood cultures no growth after 1 day Medications: * Rocephin started due to possible concern of SBP on 03/25-03/26 * Vancomycin and Zosyn started for better coverage to include both sepsis and SBP (03/26- Renal: TAMIKO baseline <1.0 -Fluids currently at D10 at 75 mL/hr -Bunch catheter Monitor I's and O's -Creatinine continuing to increase to 3.47 today possibly due to type I hepatorenal syndrome Heme: Elevated INR, low platelets -SCDs -Transfused 3 units of FFP as above -Monitor platelets Electrolytes: continues to have hyponatremia, hypoglycemia resolved s/p D10 - continue to monitor BMPs - Q1H glucose checks DVT Prophylaxis - Bilateral SCDs - Hold chemical anticoagulation in the setting of coagulopathy GI Prophylaxis - Protonix 40 mg IV q24h sdw Dr. Alice Segura Discharge Planning Unclear timetable. Problem List: (1) Fulminant hepatitis Status: Acute (2) Hepatic encephalopathy Status: Acute (3) Acute kidney injury Status: Acute (4) Hilar mass Status: Acute (5) Ascites Status: Acute (6) Transaminitis Status: Acute (7) Abdominal pain Status: Acute (8) Hyponatremia Status: Acute Problem Qualifiers (1) Abdominal pain: Qualified Code: R10.30 - Lower abdominal pain Ephraim Red MD R1 Mar 28, 2016 06:36
--- NOTE | 2016-03-28 08:15 | HHI.DS ---
Discharge Summary Admission Date Mar 24, 2016 at 14:55 Admitting Diagnosis RUQ abd pain, elevated LFTs (1) Fulminant hepatitis Diagnosis: Principal Plan: 65 year old female presented with RUQ abdominal pain. Admitted with transaminitis and severe abdominal pain. Critical Care was consulted due to acute worsening of clinical status. Plan by systems: Neuro: Began to have altered mental status on 03/26 acutely. Possibly due to hepatic encephalopathy, hypoglycemia -Acute increase in ammonia from <10 to 84, remains elevated today to 77 -Glucose of 29 treated with D50 -ABG obtained on 3L via NC, showing mild respiratory acidosis -Q1H neuro checks Medications: * Lactulose 30ml q6h * Rifaximin 550 mg po bid * Acetylcysteine IV per protocol as acetaminophen overdose may present with this picture however the suspicion of this is low * D10 @ 75 mL/hr. Bedside blood glucoses within appropriate range this morning 120-156 mg/dL * Hold long-acting sedating medications * Dilaudid 0.5 mg IVP q4h if necessary Cardiac: elevated troponins possibly due to decreased clearance, CK-MB within normal limits -There is acute elevations of troponins but without EKG changes and pt is unable to clearly pinpoint pain. Suspect elevation is due to TAMIKO -Cardiac telemetry -Echo: Hyperdynamic systolic function, ejection fraction estimated to be 70-75% , normal wall motion, no regional wall motion abnormalities. Abnormal left ventricular relaxation (grade I diastolic dysfunction). Mild MV regurgitation -BNP WNL Respiratory: Large right perihilar mass -ABG shows mild respiratory acidosis with pH of 7.31/PaCO2 45/HCO3 22/Pa02 91 -Pulmonary consulted: * bronchoscopy may be needed depending on further evaluation -Biopsy is needed to diagnose malignancy or to rule it out in order to proceed with next steps in regards to whether the patient would be a candidate for a liver transplant -Plan is to obtain CT-guided biopsy of lung mass as well as liver -Transfused 3 units of FFP before biopsies given her elevated PT/INR Imaging * CXR: Right hilar mass and right lower lobe consolidation. No other acute findings * Chest CT: Large right perihilar mass with mediastinal osmani involvement. Calcified granuloma right lower lobe GI: Fulminant hepatitis, markedly elevated LFTs, Elevated Bilirubin, hypoglycemia, ascites No clear etiology as patient does not have a history of recent alcohol or IV drug use. Does have a history of remote drug use but none within the last 15- 16 years. -Hepatitis panel negative -INR 2.1, continues to trend upward -Daily CMP and coags -Tylenol level < 2.0 however not obtained at admission GI consulted: * Not clear why the patient's liver function tests are elevated * AFP negative * Extensive laboratory workup per GI to include: serum antibodies, iron profile , EBV and HSV antibodies, [id number], ceruloplasmin, LJ Imaging: * MRCP: very prominent enlargement of the liver. No biliary duct dilation. Mild ascites. Right lung mass * Abdomen/Pelvis CT: No evidence of metastatic disease; ascites and anasarca, hepatomegaly * KUB significant only again for massive hepatomegaly ID: SBP?, sepsis? -Leukocytosis with no clear etiology. Downtrended today to 10.1 -Initial UA negative -Repeat UA and culture. Culture no growth after 24 hours -Blood cultures no growth after 1 day Medications: * Rocephin started due to possible concern of SBP on 03/25-03/26 * Vancomycin and Zosyn started for better coverage to include both sepsis and SBP (03/26- Renal: TAMIKO baseline <1.0 -Fluids currently at D10 at 75 mL/hr -Bunch catheter Monitor I's and O's -Creatinine continuing to increase to 3.47 today possibly due to type I hepatorenal syndrome Heme: Elevated INR, low platelets -SCDs -Transfused 3 units of FFP as above -Monitor platelets Electrolytes: continues to have hyponatremia, hypoglycemia resolved s/p D10 - continue to monitor BMPs - Q1H glucose checks DVT Prophylaxis - Bilateral SCDs - Hold chemical anticoagulation in the setting of coagulopathy GI Prophylaxis - Protonix 40 mg IV q24h (2) Hepatic encephalopathy Diagnosis: Principal (3) Acute kidney injury Diagnosis: Principal (4) Hilar mass Diagnosis: Principal (5) Ascites Diagnosis: Principal (6) Transaminitis Diagnosis: Principal (7) Abdominal pain Diagnosis: Principal (8) Hyponatremia Diagnosis: Principal Consultants Critical care, pulmonology, gastroenterology, general surgery Procedures CT-guided liver and lung biopsies Brief History 65 year old female presents to the ED with worsening RUQ abdominal pain for the past 3-4 weeks and nausea. She states her symptoms all started shortly after beginning to use Butrans patches. She reports poor PO intake over the past 3-4 weeks due to her nausea and dry heaves. She also reports constipation stating her last BM was about 2 weeks ago. Denies fevers or chills, or any episodes of diarrhea over the past month. She states she continues to dry heave but has not vomited recently. States the last time she vomited was about a month ago. Denies any blood or bile in that vomitus. Denies ever having an EGD or colonoscopy before. She states her lower extremity edema started a few days after [place]. She also endorses periumbilical abdominal pain. No radiation of this pain or her RUQ pain. Denies chest pain. Denies shortness of breath. She states her BMs were regular prior to 4 weeks ago. She denies any significant weight loss over the past month. CBC/BMP: 03/28/16 0154 03/28/16 0154 Significant Findings Laboratory Tests Test 03/25/16 03/26/16 03/26/16 03/26/16 14:20 07:10 08:48 10:57 Blood Gas Oxygen Saturation 89 % (90-100) Arterial Blood Partial 60 mmHg Pressure O2 (61-120) White Blood Count 17.4 TH/MM3 (4.0-11.0) Hemoglobin 15.4 GM/DL (11.6-15.3) Platelet Count 121 TH/MM3 (150-450) Neutrophils (%) (Auto) 85.4 % (16.0-70.0) Lymphocytes (%) (Auto) 8.8 % (9.0-44.0) Neutrophils # (Auto) 14.8 TH/MM3 (1.8-7.7) Neutrophils % (Manual) 79 % (16-70) Band Neutrophils % 9 % (0-6) Lymphocytes % 4 % (9-44) Neutrophils # (Manual) 15.5 TH/MM3 (1.8-7.7) Nucleated Red Blood Cells 1 /100 WBC (0-0) Hypersegmented Polys 1+ (NORMAL) Platelet Estimate LOW (NORMAL) Target Cells 1+ (NORMAL) Blood Gas Base Excess -3.3 mmol/L (-2-2) Arterial Blood pH 7.31 (7.380-7.420) Arterial Blood Partial 45 mmHg (38-42) Pressure CO2 Arterial Blood Oxygen Content 20.6 Vol % (12.0-20.0) Blood Gas Hemoglobin 16.1 G/DL (12.0-16.0) Prothrombin Time 22.6 SEC (9.8-11.6) Ammonia 84 MCMOL/L (11-32) Test 03/26/16 03/26/16 03/26/16 03/26/16 11:03 13:00 18:17 23:45 Sodium Level 131 MEQ/L (136-145) Chloride Level 91 MEQ/L (98-107) Anion Gap 19 MEQ/L (5-15) Blood Urea Nitrogen 39 MG/DL (7-18) Creatinine 2.58 MG/DL (0.50-1.00) Estimat Glomerular Filtration 19 ML/MIN (>89) Rate Random Glucose 12 MG/DL (74-106) Total Bilirubin 10.5 MG/DL 9.1 MG/DL 9.2 MG/DL (0.2-1.0) (0.2-1.0) (0.2-1.0) Aspartate Amino Transf 2758 U/L 3120 U/L 3661 U/L (AST/SGOT) (15-37) (15-37) (15-37) Alanine Aminotransferase 1035 U/L 1226 U/L 1370 U/L (ALT/SGPT) (10-53) (10-53) (10-53) Alkaline Phosphatase 577 U/L 438 U/L 411 U/L (45-117) (45-117) (45-117) Troponin I 0.36 NG/ML 0.82 NG/ML (0.02-0.05) (0.02-0.05) Total Protein 5.3 GM/DL 4.9 GM/DL 4.7 GM/DL (6.4-8.2) (6.4-8.2) (6.4-8.2) Albumin 2.7 GM/DL 2.9 GM/DL 2.8 GM/DL (3.4-5.0) (3.4-5.0) (3.4-5.0) Acetaminophen Level LESS THAN 2.0 MCG/ML (10.0-30.0) Urine Color DARK-BROWN (YELLW/STRAW) Urine Turbidity CLOUDY (CLEAR) Urine Protein 300 mg/dL (NEG-TRACE) Urine Occult Blood MOD (NEG) Urine Bilirubin MOD (NEG) Urine Leukocyte Esterase TRACE (NEG) Urine Mucus FEW /lpf (OCC) Prothrombin Time 23.5 SEC 23.9 SEC (9.8-11.6) (9.8-11.6) Activated Partial 45.4 SEC 46.8 SEC Thromboplast Time (24.3-30.1) (24.3-30.1) Lactic Acid Level 5.2 mmol/L (0.4-2.0) Direct Bilirubin 7.0 MG/DL 7.4 MG/DL (0.0-0.2) (0.0-0.2) Indirect Bilirubin 2.1 MG/DL 1.8 MG/DL (0.0-0.8) (0.0-0.8) Total Creatine Kinase 1251 U/L (26-192) Creatine Kinase MB 33.6 NG/ML (0.5-3.6) Test 03/27/16 03/27/16 03/27/16 03/27/16 04:41 09:40 17:20 20:40 Platelet Count 65 TH/MM3 49 TH/MM3 (150-450) (150-450) Neutrophils % (Manual) 78 % (16-70) Band Neutrophils % 14 % (0-6) 10 % (0-6) Lymphocytes % 8 % (9-44) Neutrophils # (Manual) 9.3 TH/MM3 (1.8-7.7) Nucleated Red Blood Cells 2 /100 WBC 6 /100 WBC (0-0) (0-0) Platelet Estimate LOW (NORMAL) LOW (NORMAL) Prothrombin Time 23.9 SEC 22.1 SEC 19.2 SEC 23.4 SEC (9.8-11.6) (9.8-11.6) (9.8-11.6) (9.8-11.6) Activated Partial 46.1 SEC 42.4 SEC 42.2 SEC 97.3 SEC Thromboplast Time (24.3-30.1) (24.3-30.1) (24.3-30.1) (24.3-30.1) Sodium Level 128 MEQ/L 135 MEQ/L (136-145) (136-145) Chloride Level 91 MEQ/L 96 MEQ/L (98-107) (98-107) Blood Urea Nitrogen 50 MG/DL (7-18) 57 MG/DL (7-18) Creatinine 3.47 MG/DL 4.67 MG/DL (0.50-1.00) (0.50-1.00) Estimat Glomerular Filtration 13 ML/MIN (>89) 9 ML/MIN (>89) Rate Random Glucose 144 MG/DL 126 MG/DL (74-106) (74-106) Lactic Acid Level 3.0 mmol/L (0.4-2.0) Total Bilirubin 9.4 MG/DL 8.5 MG/DL 5.8 MG/DL (0.2-1.0) (0.2-1.0) (0.2-1.0) Aspartate Amino Transf 4038 U/L 3549 U/L 2421 U/L (AST/SGOT) (15-37) (15-37) (15-37) Alanine Aminotransferase 1543 U/L 1215 U/L 819 U/L (10-53) (ALT/SGPT) (10-53) (10-53) Alkaline Phosphatase 436 U/L 395 U/L 283 U/L (45-117) (45-117) (45-117) Ammonia 77 MCMOL/L 44 MCMOL/L 69 MCMOL/L (11-32) (11-32) (11-32) Total Creatine Kinase 1574 U/L (26-192) Creatine Kinase MB 23.3 NG/ML (0.5-3.6) Troponin I 0.96 NG/ML (0.02-0.05) Total Protein 4.8 GM/DL 5.1 GM/DL 3.4 GM/DL (6.4-8.2) (6.4-8.2) (6.4-8.2) Albumin 2.6 GM/DL 2.5 GM/DL 1.7 GM/DL (3.4-5.0) (3.4-5.0) (3.4-5.0) Total Iron Binding Capacity 160 MCG/DL (250-450) Percent Iron Saturation GREATER THAN 50.0 % (20-50) Ferritin 54363 NG/ML (8-252) Direct Bilirubin 6.6 MG/DL (0.0-0.2) Indirect Bilirubin 1.9 MG/DL (0.0-0.8) Red Blood Count 2.14 MIL/MM3 (4.00-5.30) Hemoglobin 6.7 GM/DL (11.6-15.3) Hematocrit 20.3 % (35.0-46.0) Neutrophils (%) (Auto) 75.7 % (16.0-70.0) Myelocytes 1 % (0-0) Potassium Level 5.7 MEQ/L (3.5-5.1) Carbon Dioxide Level 19.7 MEQ/L (21.0-32.0) Anion Gap 19 MEQ/L (5-15) Calcium Level 7.7 MG/DL (8.5-10.1) Test 03/27/16 03/28/16 03/28/16 22:23 01:51 01:54 Blood Gas HCO3 11 mmol/L (22-26) Blood Gas Base Excess -17.5 mmol/L (-2-2) Arterial Blood pH 7.03 (7.380-7.420) Arterial Blood Partial 45 mmHg (38-42) Pressure CO2 Arterial Blood Partial 233 mmHg Pressure O2 (61-120) Arterial Blood Oxygen Content 7.9 Vol % (12.0-20.0) Blood Gas Hemoglobin 5.3 G/DL (12.0-16.0) Ammonia 44 MCMOL/L (11-32) Hemoglobin 3.8 GM/DL (11.6-15.3) Hematocrit 11.8 % (35.0-46.0) Prothrombin Time 20.4 SEC (9.8-11.6) Activated Partial GREATER THAN Thromboplast Time 153.4 SEC (24.3-30.1) Carbon Dioxide Level 12.3 MEQ/L (21.0-32.0) Anion Gap 23 MEQ/L (5-15) Blood Urea Nitrogen 37 MG/DL (7-18) Creatinine 3.12 MG/DL (0.50-1.00) Estimat Glomerular Filtration 15 ML/MIN (>89) Rate Random Glucose 241 MG/DL (74-106) Calcium Level 6.0 MG/DL (8.5-10.1) Protein Corrected Calcium 8.3 MG/DL (8.5-10.1) Total Bilirubin 1.6 MG/DL (0.2-1.0) Direct Bilirubin 1.1 MG/DL (0.0-0.2) Aspartate Amino Transf 808 U/L (15-37) (AST/SGOT) Alanine Aminotransferase 255 U/L (10-53) (ALT/SGPT) Total Protein 2.8 GM/DL (6.4-8.2) Albumin 1.2 GM/DL (3.4-5.0) Imaging Abdomen/pelvis CT: No evidence of metastatic disease. Ascites and anasarca. Hepatomegaly. Chest CT: Large right perihilar mass with mediastinal osmani involvement. Calcified granuloma right lower lobe. No evidence of destructive bone lesions. MRCP: Very prominent enlargement of the liver. Significant biliary duct dilatation is not seen. Mild amount of ascites. Right lung mass. CXR 03/27: Development of a large right-sided hemothorax or pleural effusion compared with 03/26 CXR. Near-complete opacification of the right hemithorax. PE at Discharge GENERAL: Lying in bed clearly confused. Intermittently yells out in pain but does not seem to be writhing in pain. EYES: Extraocular motions intact. Eyelids droopy. Scleral icterus evident. No injection or drainage. CARDIOVASCULAR: Regular rate and rhythm without murmurs, gallops, or rubs. RESPIRATORY: Decreased air movement bilaterally. No wheezes, rales, or rhonchi. GASTROINTESTINAL: Abdomen soft, tenderness to palpation of RUQ. Significant hepatomegaly. Seems to be guarding even though she is lethargic. MUSCULOSKELETAL: 2+ lower extremity edema. No calf tenderness. NEUROLOGICAL: Drowsy. Answers to name. Unable to state where she is or what year it is. Speech is mumbled, sometimes coherent. Hospital Course Pulmonology and gastroenterology were consulted given the patient presenting with a large right perihilar mass and transaminitis. Two days after admission the patient developed acute altered mental status likely related to her critical disease processes and needed to be transferred to the intensive care unit. Along with this acute fulminant liver failure the patient also developed acute renal failure and was thought to have type I hepatorenal syndrome. As her lung mass was concerning for malignancy, a definitive diagnosis of this was needed in order to determine if she would be a suitable candidate for a liver transplant. Her medical conditions were discussed with all specialists as well as family at bedside. The patient underwent CT-guided lung and liver biopsies by IR. The patient later developed a large right-sided hemothorax, a chest tube was placed however the patient continued to bleed despite many units of FFP. Patient was transfused with multiple units of PRBCs however her hemoglobin continued to rapidly drop. The patient went into V-tach and earlier this morning. Pt Condition on Discharge: Deteriorating (Patient earlier this AM) Ephraim Red MD R1 Mar 28, 2016 08:15
[2016-03-28] MEDS ORDERED: VANCOMYCIN INJ 1,000 MG in SODIUM CHLOR 0.9% 250 ML INJ 250 ML IV SCH (11:00)
[2016-03-28 13:38] LABS: EBV VCA IgM Negative (Negative)
[2016-03-29 03:55] LABS: MITOCHONDRIAL ABS LESS THAN 20.0 U (())
[2016-03-29 23:57] LABS: HSV2 IGM IFA NEGATIVE (())
[2016-03-30 11:05] LABS: HSV IGM 1 TITER ND TITER; HSV IGM II TITER ND TITER
== END 2016-03-28 04:23 | disposition expired | DRG 208 ==
LOC: NEPE 09:33 → NEDA 14:55 → HOCA 17:49 → HIME 03-26 10:20
PROVIDERS: ADMIT Family Medicine; ATTEND Family Medicine
PROC: 0T9B70Z Drainage of Bladder with Drainage Device, Via Natural or Artificial Opening (ICD-10-PCS; 2016-03-26)
PROC: 0FB03ZX Excision of Liver, Percutaneous Approach, Diagnostic (ICD-10-PCS; principal; 2016-03-27)
PROC: 5A1935Z Respiratory Ventilation, Less than 24 Consecutive Hours (ICD-10-PCS; 2016-03-27)
PROC: 0BBK3ZX Excision of Right Lung, Percutaneous Approach, Diagnostic (ICD-10-PCS; 2016-03-27)
PROC: 30233K1 Transfusion of Nonautologous Frozen Plasma into Peripheral Vein, Percutaneous Approach (ICD-10-PCS; 2016-03-27)
PROC: 30233N1 Transfusion of Nonautologous Red Blood Cells into Peripheral Vein, Percutaneous Approach (ICD-10-PCS; 2016-03-27)
PROC: 6A550Z2 Pheresis of Platelets, Single (ICD-10-PCS; 2016-03-27)
PROC: 06HM33Z Insertion of Infusion Device into Right Femoral Vein, Percutaneous Approach (ICD-10-PCS; 2016-03-27)
PROC: 0BH17EZ Insertion of Endotracheal Airway into Trachea, Via Natural or Artificial Opening (ICD-10-PCS; 2016-03-27)
PROC: 0W9930Z Drainage of Right Pleural Cavity with Drainage Device, Percutaneous Approach (ICD-10-PCS; 2016-03-27)
DX: C34.90 Malignant neoplasm of unspecified part of unspecified bronchus or lung (principal); K76.7 Hepatorenal syndrome; I47.2 Ventricular tachycardia; D68.9 Coagulation defect, unspecified; N17.9 Acute kidney failure, unspecified; J94.2 Hemothorax; C78.7 Secondary malignant neoplasm of liver and intrahepatic bile duct; E87.2 Acidosis; R18.8 Other ascites; E44.1 Mild protein-calorie malnutrition; E87.1 Hypo-osmolality and hyponatremia; J98.11 Atelectasis; J44.9 Chronic obstructive pulmonary disease, unspecified; F17.210 Nicotine dependence, cigarettes, uncomplicated; E87.70 Fluid overload, unspecified; D72.829 Elevated white blood cell count, unspecified; F32.9 Major depressive disorder, single episode, unspecified; F90.9 Attention-deficit hyperactivity disorder, unspecified type; M54.9 Dorsalgia, unspecified; G89.29 Other chronic pain; K59.00 Constipation, unspecified; F41.9 Anxiety disorder, unspecified; R59.0 Localized enlarged lymph nodes; M81.0 Age-related osteoporosis without current pathological fracture; Z90.710 Acquired absence of both cervix and uterus; E16.2 Hypoglycemia, unspecified; Z66 Do not resuscitate
CPT/HCPCS: 31500; 32405; 32551; 36430; 36556; 36600; 47000; 71010; 71250; 74000; 74177; 74183; 76377; 76705; 77012; 80048; 80053; 80074; 80076; 80320; 80329; 81001; 82103; 82105; 82140; 82164; 82390; 82550; 82552; 82728; 82805; 82948; 83520; 83540; 83550; 83605; 83690; 83880; 84132; 84155; 84484; 85007; 85014; 85018; 85025; 85027; 85610; 85730; 86038; 86256; 86664; 86665; 86695; 86696; 86850; 86900; 86901; 86920; 86922; 86927; 86965; 87040; 87070; 87086; 87205; 87641; 88305; 88307; 88333; 93005; 93306; 94640; 94664; 94729; 96374; 96375; A9579; C9113; G0480; J0132; J0171; J0610; J0696; J1170; J1720; J1940; J2250; J2270; J2405; J2543; J3010; J3370; J3430; J7030; J7042; J7050; J7060; J7070; J7613; P9016; P9017; P9035; P9045; Q9963; Q9967